=== PATIENT | female | born 1935 | race Caucasian/White ===

== ENCOUNTER 2020-01-11 23:38 | Emergency (ER) | payer MEDICARE, OTHER, SELFPAY ==
--- NOTE | 2020-01-11 23:43 | ED.FEMALEGU ---
HPI - Female Genitourinary General Chief complaint: Urogenital-Female Stated complaint: vaginal burning Time Seen by Provider: 01/11/20 23:41 Source: patient and family Mode of arrival: ambulatory Limitations: no limitations History of Present Illness HPI Narrative: Patient is an 84-year-old female who presents for evaluation of vaginal itching and irritation. Patient reports she has had burning in that area as well as some white discharge. She denies fever, chills, nausea or vomiting. No painful urination or hematuria. No constipation or diarrhea. Patient reports mild pelvic pain. No recent history of UTI or yeast infection. No weakness or numbness. No recent sexual activity. No new soaps, lotions or detergents. Related Data Allergies Allergy/AdvReac Type Severity Reaction Status Date / Time Penicillins Allergy Unknown Verified 04/12/18 14:58 Review of Systems Review of Systems: Narrative: CONSTITUTIONAL: Denies fever CARDIOVASCULAR: Denies chest pain RESPIRATORY: Denies cough or dyspnea. GASTROINTESTINAL: Denies abdominal pain SKIN: Denies rash MUSCULOSKELETAL: Denies back pain NEUROLOGIC: Denies headache [facility] Past Medical History Medical History (Updated 01/12/20 @ 00:52 by Sonia Mckeon MD) Acid reflux Hyperlipidemia Hypertension Small bowel obstruction Surgical History Surgical History (Updated 01/11/20 @ 23:43 by Sonia Mckeon MD) H/O mastectomy Social History Social History Smoking status: Never smoker Alcohol intake: never Exam Narrative: Exam Narrative: GENERAL: Awake, alert, conversant HEAD: Normocephalic, atraumatic. EYES: PERRLA and EOMI. ENT: Nares clear, no rhinorrhea or epistaxis. Mucous membranes moist. NECK: Supple. CHEST: No respiratory distress, breathing even and non labored HEART: Regular rate, sinus rhythm ABDOMEN:Non distended, non tender : Labia majora and minora are mildly excoriated, white cottage cheeselike discharge present. No abscess. No vaginal bleeding. EXTREMITIES: Normal range of motion. No edema. SKIN: Warm, dry, no rash. NEURO:No focal deficits. Alert and oriented x3 Course Vital Signs Vital signs: Vital Signs Pulse Rate 99 01/11/20 23:44 Respiratory Rate 18 06/18/20 23:44 Blood Pressure 171/68 H 01/11/20 23:44 Pulse Oximetry 94 01/11/20 23:44 Pulse Rate 83 01/12/20 00:47 Respiratory Rate 18 01/12/20 00:47 Blood Pressure 173/81 H 01/12/20 00:47 Pulse Oximetry 98 01/12/20 00:47 MDM - Female Genitourinary MDM Narrative Medical decision making narrative: Patient presenting for evaluation of vaginal irritation. Patient has had white discharge on exam it seems most consistent with vaginal candidiasis. Patient was given Diflucan in the ER. No UTI. No other severe electrolyte derangements. Mild anemia. Patient will also be given intravaginal suppository for irritation, advised to follow-up with her PCP or return should symptoms change or recur. Differential Diagnosis Differential diagnosis: Likely urinary tract infection, cervicitis and vaginitis Lab Data Attestation: I reviewed the patient's lab results. Result diagrams: 01/12/20 00:14 01/12/20 00:14 Labs: Lab Results 01/12/20 01/12/20 01/12/20 Range/Units 00:14 00:14 00:16 WBC 11.5 H (4.5-10.0) K/mm3 RBC 3.61 L (4.2-5.4) M/mm3 Hgb 9.4 L (12.0-15.0) g/dL Hct 30.4 L (37.0-47.0) % MCV 84.2 (80-100) fl MCH 26.0 (26-34) pg MCHC 30.9 L (32-36) g/dl RDW 15.0 H (11.5-14.5) % Plt Count 350 (150-375) k/mm3 MPV 10.7 H (7.4-10.4) fl Immature Gran % (Auto) 0.5 (0-0.5) % Neut % (Auto) 62.8 (45.5-73.1) % Lymph % (Auto) 22.5 (18.3-44.2) % [place] % (Auto) 9.7 H (2.6-8.5) % Eos % (Auto) 3.6 (0-4.4) % Baso % (Auto) 0.9 (0.2-1.2) % Lymph # (Auto) 2.59 (0.9-3.2) K/mm3 [place] # (Auto) 1.1 H (0.1-0.6)
[2020-01-11 23:44] VITALS: BP 171/68; PULSE 99; RESP 18; O2SAT 94
[2020-01-12 00:26] LABS: Basophils Absolute Auto 0.1 K/mm3 (0.0-0.1); Basophils Percent Auto 0.9 % (0.2-1.2); Eosinophils Absolute Auto 0.4 K/mm3 (0-0.3); Eosinophils Percent Auto 3.6 % (0-4.4); Hematocrit 30.4 % (37.0-47.0); Hemoglobin 9.4 g/dL (12.0-15.0); Immature Granulocyte Absolute 0.06 K/mm3 (0.00-0.031); Immature Granulocyte Percent A 0.5 % (0-0.5); Lymphocytes Absolute Auto 2.59 K/mm3 (0.9-3.2); Lymphocytes Percent Auto 22.5 % (18.3-44.2); Mean Corpuscular HGB Conc 30.9 g/dl (32-36); Mean Corpuscular Volume 84.2 fl (80-100); Mean Platelet Volume 10.7 fl (7.4-10.4); Monocytes Absolute Auto 1.1 K/mm3 (0.1-0.6); Monocytes Percent Auto 9.7 % (2.6-8.5); Neutrophils Absolute Auto 7.2 K/mm3 (1.3-6.7); Neutrophils Percent Auto 62.8 % (45.5-73.1); Platelet Count Result 350 k/mm3 (150-375); Red Blood Count 3.61 M/mm3 (4.2-5.4); White Blood Count 11.5 K/mm3 (4.5-10.0)
[2020-01-12] MEDS: FLUCONAZOLE 150 MG TABLET PO (00:26)
[2020-01-12 00:37] LABS: Blood Urea Nitrogen 16 mg/dL (7-17); Calcium 9.6 mg/dL (8.4-10.2); Carbon Dioxide 22 mmol/L (22-30); Chloride 103 mmol/L (98-107); Estimated CRCL calculation 37 ml/min; Estimated Glomerular Filt Rate > 60; Glucose 108 mg/dL (65-105); Potassium 4.3 mmol/L (3.4-5.0); Sodium 134 mmol/L (137-145)
[2020-01-12 00:46] LABS: Add Urine Microscopic? YES; Appearance Urine Turbid (Clear); Bacteria Urine 1+ /hpf; Bilirubin Urine Negative (Negative); Blood Urine Negative (Negative); Color Urine Yellow (Yellow); Glucose Urine UA Negative (Negative); Ketones Urine Negative (Negative); Leukocyte Esterase Ur Negative LEU/UL (Negative); Mucus Urine Rare /lpf; Nitrate Urine Negative (Negative); Protein Urine Negative (Negative); Specific Grav Ur 1.009 (1.001-1.035); Squamous Epithelial Cell Urine Many /hpf (Few); Urobilinogen Urine Negative mg/dL (<2.0)
[2020-01-12 00:47] VITALS: BP 173/81; PULSE 83; RESP 18; O2SAT 98
[2020-01-12 01:31] VITALS: BP 163/72; PULSE 87; RESP 18; O2SAT 99
== END 2020-01-12 01:12 | disposition home or self-care (01) ==
PROVIDERS: Emergency Provider Emergency Medicine; PCP Family Medicine
DX: B37.3 Candidiasis of vulva and vagina (principal); E78.5 Hyperlipidemia, unspecified; I10 Essential (primary) hypertension; Z90.10 Acquired absence of unspecified breast and nipple
CPT/HCPCS: 36415; 80048; 81001; 85025; 99283; A9270

== ENCOUNTER 2020-01-14 10:14 | Emergency (ER) | payer MEDICARE, OTHER, SELFPAY ==
[2020-01-14 10:24] VITALS: BP 172/69; PULSE 92; RESP 18; TEMP 36.6; O2SAT 100
[2020-01-14 11:07] LABS: Basophils Absolute Auto 0.1 K/mm3 (0.0-0.1); Basophils Percent Auto 0.8 % (0.2-1.2); Eosinophils Absolute Auto 0.4 K/mm3 (0-0.3); Eosinophils Percent Auto 3.1 % (0-4.4); Hematocrit 30.2 % (37.0-47.0); Hemoglobin 9.3 g/dL (12.0-15.0); Immature Granulocyte Absolute 0.04 K/mm3 (0.00-0.031); Immature Granulocyte Percent A 0.3 % (0-0.5); Lymphocytes Absolute Auto 1.67 K/mm3 (0.9-3.2); Lymphocytes Percent Auto 14.6 % (18.3-44.2); Mean Corpuscular HGB Conc 30.8 g/dl (32-36); Mean Corpuscular Hemoglobin 25.9 pg (26-34); Mean Corpuscular Volume 84.1 fl (80-100); Mean Platelet Volume 10.6 fl (7.4-10.4); Neutrophils Absolute Auto 8.3 K/mm3 (1.3-6.7); Neutrophils Percent Auto 72.2 % (45.5-73.1); Platelet Count Result 342 k/mm3 (150-375); Red Blood Count 3.59 M/mm3 (4.2-5.4); Red Cell Distribution Width 15.4 % (11.5-14.5); White Blood Count 11.4 K/mm3 (4.5-10.0)
[2020-01-14 11:19] LABS: Blood Urea Nitrogen 23 mg/dL (7-17); Calcium 9.9 mg/dL (8.4-10.2); Carbon Dioxide 25 mmol/L (22-30); Chloride 102 mmol/L (98-107); Estimated CRCL calculation 36 ml/min; Estimated Glomerular Filt Rate 60; Glucose 120 mg/dL (65-105); Potassium 4.5 mmol/L (3.4-5.0); Sodium 134 mmol/L (137-145)
--- NOTE | 2020-01-14 11:19 | ED.FEMALEGU ---
HPI - Female Genitourinary General Chief complaint: STUDENT CAREER DEVELOPMENT SPECIALIST Stated complaint: vaginal pain Time Seen by Provider: 01/14/20 10:26 Source: patient Mode of arrival: ambulatory Limitations: no limitations History of Present Illness HPI Narrative: This is a 84 year old female that presents to the ER for vaginal irritation x 3 days. Reports she was seen here for this initially and given a pill to treat yeast infection. Reports initially she had relief of her symptoms. She was also prescribed a vaginal suppository for yeast infection. Reports a couple of days later her symptoms returned. Reports the suppository was causing more irritation. Also reports dysuria. Denies fever, abdominal pain, nausea, vomiting, or hematuria. Related Data Allergies Allergy/AdvReac Type Severity Reaction Status Date / Time Penicillins Allergy Unknown Unknown Verified 01/14/20 10:27 Review of Systems Review of Systems: Narrative: CONSTITUTIONAL: Denies fever GASTROINTESTINAL: Denies abdominal pain, nausea, vomiting GENITOURINARY: Reports dysuria. Denies hematuria. All systems reviewed & are unremarkable except as noted in HPI and below PMFSH Past Medical History Medical History (Updated 01/14/20 @ 12:32 by Pina Mccollum PA-C) Acid reflux Hyperlipidemia Hypertension Small bowel obstruction Surgical History Surgical History (Updated 01/11/20 @ 23:43 by Sonia Mckeon MD) H/O mastectomy Social History Social History Smoking status: Never smoker Alcohol intake: never Gender identity (if verbalized by the patient): Female Exam Narrative: Exam Narrative: GENERAL: Well-appearing, well-nourished, and in no acute distress. HEAD: Normocephalic, atraumatic. EYES: EOMI. CHEST: Clear to auscultation. No respiratory distress. No wheezes rales or rhonchi HEART: Regular rate and rhythm. No murmur heard. Normal peripheral pulses. ABDOMEN: Soft, nontender, nondistended, normal active bowel sounds. No CVA tenderness EXTREMITIES: Normal range of motion. No edema. SKIN: Warm, dry, no rash. NEURO: No focal deficits. Alert and oriented x3. PSYCH: Normal mood and affect PELVIC: Normal external genitalia. Normal exam of the vaginal vault. Small amount of white discharge present Course Vital Signs Vital signs: Vital Signs Temperature 97.9 F 01/14/20 10:24 Pulse Rate 92 01/14/20 10:24 Respiratory Rate 18 01/14/20 10:24 Blood Pressure 172/69 H 01/14/20 10:24 Pulse Oximetry 100 01/14/20 10:24 Temperature 97.9 F 01/14/20 10:24 Pulse Rate 86 01/14/20 12:30 Respiratory Rate 18 01/14/20 12:30 Blood Pressure 167/66 H 01/14/20 12:30 Pulse Oximetry 99 01/14/20 12:30 MDM - Female Genitourinary MDM Narrative Medical decision making narrative: Patient presents the emergency department for vaginal irritation x4 days. Was originally seen here for this and given a dose of Diflucan p.o. Was sent home on intravaginal suppository as well. Reports the suppositories were giving her more irritation and her symptoms returned. CBC with mild leukocytosis to 11.4. Her hemoglobin appears to be around her baseline. Metabolic panel without concerning changes. UA is normal. Trichomonas was negative. A genital culture, chlamydia and gonorrhea were sent. Patient will be given another dose of oral fluconazole today and 2 additional doses for home. Patient was instructed if this does not relieve her symptoms to follow-up with a math instructor. Patient stable and felt appropriate for further outpatient evaluation. She was given warnings to return to the ER Lab Data Attestation: I reviewed the patient's lab results. Result diagrams: 01/14/20 11:02 01/14/20 11:02 Labs: Lab Results 01/14/20 01/14/20 01/14/20 Range/Units 11:02 11:02 11:18 WBC 11.4 H (4.5-10.0) K/mm3 RBC 3.59 L (4.2-5.4) M/mm3 Hgb 9.3 L (12.0-15.0) g/dL Hct 30.
[2020-01-14 11:37] LABS: Add Urine Microscopic? YES; Appearance Urine Clear (Clear); Bilirubin Urine Negative (Negative); Blood Urine Negative (Negative); Color Urine Yellow (Yellow); Glucose Urine UA Negative (Negative); Ketones Urine Negative (Negative); Leukocyte Esterase Ur Negative LEU/UL (Negative); Mucus Urine Rare /lpf; Nitrate Urine Negative (Negative); Protein Urine Negative (Negative); RBC Urine 0-2 /hpf (0-2); Specific Grav Ur 1.018 (1.001-1.035); Squamous Epithelial Cell Urine Rare /hpf (Few); Urobilinogen Urine Negative mg/dL (<2.0); WBC Urine 0-3 /hpf
[2020-01-14 12:30] VITALS: BP 167/66; PULSE 86; RESP 18; O2SAT 99
[2020-01-14] MEDS: FLUCONAZOLE 150 MG TABLET PO (12:30)
== END 2020-01-14 13:00 | disposition home or self-care (01) ==
PROVIDERS: Physician Assistant; Emergency Provider Emergency Medicine; PCP Family Medicine
DX: B37.3 Candidiasis of vulva and vagina (principal); E78.5 Hyperlipidemia, unspecified; I10 Essential (primary) hypertension; Z90.10 Acquired absence of unspecified breast and nipple
CPT/HCPCS: 36415; 80048; 81001; 85025; 87070; 87491; 87591; 87808; 99284; A9270

== ENCOUNTER 2021-03-30 21:14 | Inpatient (IN) | payer MEDICARE, OTHER, SELFPAY ==
--- NOTE | ~2021-03-30 | XR_ITS ---
EXAMINATION: XR chest PICC line DATE: 03/31/2021 19:29 INDICATION: Central line placement. TECHNIQUE: A single frontal view of the chest was obtained. COMPARISON: Chest single view at 642 PM FINDINGS: There is a moderate-sized left pleural effusion. There is a diffuse interstitial pattern in the lungs, consistent with mild pulmonary edema. There are airspace opacities at left lung base. No pneumothorax. Cardiomegaly is noted. A left upper extremity peripherally inserted central venous cath eter (PICC) is seen with tip in the superior vena cava. IMPRESSION: 1. PICC tip in the superior vena cava. 2. Mild pulmonary edema. 3. Stable moderate-sized left pleural effusion. 4. Stable airspace opacities at left lung base, consistent with atelectasis versus pneumonia. 5. Cardiomegaly. Reviewed, dictated and finalized at location A. IMPRESSION: 1. PICC tip in the superior vena cava. 2. Mild pulmonary edema. 3. Stable moderate-sized left pleural effusion. 4. Stable airspace opacities at left lung base, consistent with atelectasis igor myrtle pneumonia. 5. Cardiomegaly.
--- NOTE | ~2021-03-30 | XR_ITS ---
EXAMINATION: XR chest 1V portable DATE: 03/31/2021 12:37 INDICATION: Shortness of breath. TECHNIQUE: A single frontal view of the chest was obtained. COMPARISON: Chest 2 views 03/30/2021, CT abdomen and pelvis 03/31/2021 FINDINGS: There are small right and moderate-sized left pleural effusions. There are airspace opaciti es in the mid and lower lung zones with a basilar predominance. No pneumothorax. Cardiomegaly is note d. There are surgical clips in right axilla. IMPRESSION: 1. Stable small right and moderate-sized left pleural effusions. 2. Airspace opacities in the mid and lower lung zones with worsening on the right, likely a combinati on of pulmonary edema and atelectasis. Pneumonia cannot be excluded. 3. Cardiomegaly. Reviewed, dictated and finalized at location A. IMPRESSION: 1. Stable small right and moderate-sized left pleural effusions. 2. Airspace opacities in the mid and lower lung zones with worsening on the rig ht, likely a combination of pulmonary edema and atelectasis. Pneumonia cannot b e excluded. 3. Cardiomegaly.
--- NOTE | ~2021-03-30 | CT_ITS ---
EXAMINATION: CT brain wo con DATE: 03/30/2021 23:02 INDICATION: Altered mental status with confusion TECHNIQUE: Computed tomography (CT) of the head was performed without intravenous contrast. Sagittal and coronal reconstructions were performed. The mA was adjusted according to patient size. Iterative reconstruction technique was employed. The dose-length product was 605.33 mGy-cm. COMPARISON: head CT dated 01/24/2019 FINDINGS: No acute intracranial hemorrhage, acute infarction or abnormal extra axial fluid collection. 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 There is mild scattered white matter hypoatte nuation consistent with chronic small vessel ischemic disease. Symmetric prominence of the sulci and ventricles consistent with moderate age-appropriate diffuse cerebral volume loss. No mass/mass effect . Changes of bilateral intraocular lens replacement. The orbits and mastoid air cells are normal. Mil d mucosal thickening in the bilateral sphenoid sinuses. Intracranial calcified cerebral atheroscleros is is noted. IMPRESSION: 1. No acute intracranial process. 2. 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 3. Age-related changes including moderate diffuse volume loss and mild scattered white matter hypoatt enuation consistent with chronic small vessel ischemic disease. Reviewed, dictated and finalized at location A. IMPRESSION: 1. No acute intracranial process. 2. 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 3. Age-related changes including moderate diffuse volume loss and mild scattere d white matter hypoattenuation consistent with chronic small vessel ischemic di sease.
--- NOTE | ~2021-03-30 | XR_ITS ---
EXAMINATION: XR chest 2V DATE: 03/30/2021 21:38 INDICATION: Cough and shortness of breath. Possible diabetic ketoacidosis. TECHNIQUE: frontal and lateral views of the chest were obtained. COMPARISON: Chest radiograph dated 01/24/2019 FINDINGS: Cardiomegaly. Opacities in the bilateral lower lung zones consistent with small posteriorly layering bilateral pleural effusions with associated bibasilar atelectasis, mild pulmonary edema or pneumonia. No pneumothorax. Status post right mastectomy and surgical clips the right axilla consistent with as sociated lymph node dissection. Mild thoracic kyphosis with moderate to severe spondylosis. IMPRESSION: 1. Bibasilar opacities which could represent atelectasis, mild pulmonary edema or pneumonia. 2. Small bilateral pleural effusions. 3. Cardiomegaly. Reviewed, dictated and finalized at location A.
--- NOTE | ~2021-03-30 | XR_ITS ---
EXAMINATION: XR chest PICC line DATE: 03/31/2021 19:29 INDICATION: Central line placement. TECHNIQUE: A single frontal view of the chest was obtained. COMPARISON: Chest single view at 12:03 PM FINDINGS: There is a moderate-sized left pleural effusion. There is a diffuse interstitial pattern in the lungs, consistent with mild pulmonary edema. There are airspace opacities at left lung base. No pneumothorax. Cardiomegaly is noted. A left upper extremity peripherally inserted central venous cath eter (PICC) is seen with tip in the left neck. There are surgical clips in right axilla. IMPRESSION: 1. PICC tip in left neck. 2. Mild pulmonary edema. 3. Stable moderate-sized left pleural effusion. 4. Stable airspace opacities at left lung base, consistent with atelectasis versus pneumonia. 5. Cardiomegaly. Reviewed, dictated and finalized at location A. IMPRESSION: 1. PICC tip in left neck. 2. Mild pulmonary edema. 3. Stable moderate-sized left pleural effusion. 4. Stable airspace opacities at left lung base, consistent with atelectasis igor myrtle pneumonia. 5. Cardiomegaly.
--- NOTE | ~2021-03-30 | US_ITS ---
EXAMINATION: US venous doppler [facility] DATE: 04/01/2021 13:53 INDICATION: Lower limb swelling. TECHNIQUE: Grayscale ultrasound images without and with compression and Doppler ultrasound images of the bilateral lower extremity veins were obtained. COMPARISON: None. FINDINGS: The visualized portions of right common femoral vein, profunda (deep) femoral vein, femoral vein, pop liteal vein, peroneal veins, and greater saphenous vein outflow are patent. There is thrombus in a ri ght posterior tibial vein. The visualized portions of left common femoral vein, profunda femoral vein, femoral vein, popliteal v ein, peroneal veins, and posterior tibial veins are patent. There is thrombus in left greater sapheno us vein. IMPRESSION: 1. Deep vein thrombosis involving a right posterior tibial vein. I called this result to Dr. Cynthia cardenas. 2. Superficial vein thrombosis involving left greater saphenous vein. Reviewed, dictated and finalized at location A. IMPRESSION: 1. Deep vein thrombosis involving a right posterior tibial vein. I called this result to Dr. Smith. 2. Superficial vein thrombosis involving left greater saphenous vein.
--- NOTE | ~2021-03-30 | CT_ITS ---
EXAMINATION: CT abdomen pelvis w con DATE: 03/31/2021 14:11 INDICATION: Diarrhea. Abdominal distention. Ischemic bowel. TECHNIQUE: Computed tomography (CT) of the abdomen and pelvis was performed with 100 mL Omnipaque-350 intravenous contrast. Automated exposure control and iterative reconstruction technique were employe d. The dose-length product was 1059.86 mGy-cm. COMPARISON: 03/24/2018 FINDINGS: Small right and small to moderate left posterior layering pleural effusions with dependent passive at electasis in the bilateral lower lobes. There are some patchy groundglass opacities in the noncollaps ed portion of the left lower lobe which could represent pulmonary edema, aspiration or pneumonia. Car diomegaly. Atherosclerotic coronary artery calcification. Small pericardial effusion. Small sliding-t ype hiatal hernia. Diffuse hepatic steatosis. Gallbladder is dilated to 4.3 similar maximal diameter without evident wal l thickening or focal pericholecystic inflammatory stranding to suggest acute cholecystitis. Spleen a nd pancreas are normal. Unchanged mild thickening of the bilateral adrenal glands without discrete no dules. Bilateral renal cysts, the largest on the left measuring 2.7 cm on the right measuring 2.2 cm. Richardson catheter within the partially decompressed bladder. The uterus is not identified and has likel y been surgically resected. Normal appendix. Small bowel anastomosis in the right lower quadrant. No bowel obstruction. No eviden t wall thickening of the small bowel with relatively uniform mucosal enhancement. There are a few div erticula along the proximal sigmoid colon without adjacent inflammatory change to suggest diverticuli tis. There are some wall thickening along the mid to distal colon consistent with colitis. No pneumat osis or free intraperitoneal gas. Large amount of ascites scattered throughout the abdomen and pelvis . There is calcified atherosclerosis of the aorta and many of the other arteries. No hemodynamically si gnificant stenosis specifically of the celiac axis, superior mesenteric or inferior mesenteric arteri es. No pathologically enlarged abdominal or pelvic lymphadenopathy. There is prominent diffuse body wall edema. Severe spondylosis at T7-T8 and L1-L2. Otherwise mild to moderate thoracolumbar spondylos is. Mild to moderate osteoarthritis at the bilateral hip and sacroiliac joints. IMPRESSION: 1. Diffuse wall thickening of the mid to distal colon consistent with colitis which most likely infec tious or inflammatory in etiology. 2. Anasarca with prominent diffuse body wall edema, small right and [id number] left pleural ef fusions, small pericardial effusion and large amount of ascites. 3. Patchy groundglass opacities in the noncollapsed portion of the left lower lobe which could be due to pulmonary edema, pneumonia, aspiration or atelectasis. 4. Cardiomegaly. 5. Diffuse hepatic steatosis. 6. Small sliding-type hiatal hernia. Reviewed, dictated and finalized at location A. IMPRESSION: 1. Diffuse wall thickening of the mid to distal colon consistent with colitis w hich most likely infectious or inflammatory in etiology. 2. Anasarca with prominent diffuse body wall edema, small right and small-to-mo derate left pleural effusions, small pericardial effusion and large amount of a scites. 3. Patchy groundglass opacities in the noncollapsed portion of the left lower l obe which could be due to pulmonary edema, pneumonia, aspiration or atelectasis . 4. Cardiomegaly. 5. Diffuse hepatic steatosis. 6. Small sliding-type hiatal hernia.
--- NOTE | ~2021-03-30 | CT_ITS ---
EXAMINATION: CTA chest PE protocol DATE: 04/01/2021 14:25 INDICATION: Tachypnea. TECHNIQUE: Computed tomography angiography (CTA) of the chest was performed with 100 mL Omnipaque-350 intravenous contrast timed to evaluate the pulmonary arteries. Coronal maximum intensity projection 3D-reconstructions were created by the technologist. Automated exposure control and iterative reconst ruction technique were employed. The dose-length product was 649.62 mGy-cm. COMPARISON: CT abdomen and pelvis 03/31/2021 FINDINGS: There are small right and moderate-sized left pleural effusions. There is dependent atelect asis bilaterally. There is smooth septal thickening bilaterally, consistent with a combination of pul monary edema and chronic interstitial lung disease. There is a small area of honeycombing in peripher al right lower lobe. Cardiomegaly is noted. There is a small pericardial effusion. There are coronary artery calcifications. There are acute pulmonary emboli in segmental arteries of all lobes. There is mild mediastinal lymphadenopathy, likely reactive. Body wall edema is noted. There is a large volume of ascites. There is severe thoracic and lumbar spondylosis. A left upper extremity peripherally ins erted central venous catheter (PICC) is seen with tip in the superior vena cava. IMPRESSION: 1. Acute pulmonary emboli involving segmental arteries in all lobes. 2. Small right and moderate-sized left pleural effusions. 3. Mild pulmonary edema. 4. Mild chronic interstitial lung disease. 5. Large volume of ascites. 6. Cardiomegaly. 7. Small pericardial effusion. Reviewed, dictated and finalized at location A.
--- NOTE | ~2021-03-30 | XR_ITS ---
XR chest 1V portable 04/03/2021 15:43 Indication: Shortness of breath Procedure: AP portable chest Comparison: Comparison to multiple prior studies sequentially, with oldest reviewed study dated 11/2020. Findings: Cardiomegaly with interstitial edema. Small right pleural effusion. No pneumothorax. No acu te osseous abnormality. Impression: 1: Cardiomegaly with interstitial edema. 2: Small right pleural effusion. Reviewed, dictated and finalized at location A. Impression: 1: Cardiomegaly with interstitial edema. 2: Small right pleural effusion.
--- NOTE | ~2021-03-30 | XR_ITS ---
EXAMINATION: XR Abdomen PICC EXAM DATE: 04/03/2021 12:37 INDICATION: Mid thigh picc line placement. DVT, pulmonary emboli TECHNIQUE: Frontal projection(s) of the abdomen for interpretation. Comparison is made to prior exami nation from 03/24/2018. FINDINGS: . There is a left-sided thigh venous PICC line with tip overlying the IVC at the T12 level, adequate. Several loops of mildly dilated small bowel, ileus. Expected amount of colonic stool. Ther e is no organomegaly. Degenerative IMPRESSION: PICC line at expected position. Reviewed, dictated and finalized at location A.
[2021-03-30 21:07] VITALS: PULSE 102; RESP 35; TEMP 36.6; O2SAT 100
--- NOTE | 2021-03-30 21:13 | ECG_ITS ---
Measurements Intervals [place] Rate: 103 P: 2 GA: 106 QRS: -7 QRSD: 110 T: 0 QT: 382 QTc: 500 Interpretive Statements SINUS TACHYCARDIA WITH SHORT GA INTERVAL VENTRICULAR PREMATURE COMPLEX POSSIBLE LEFT ATRIAL ENLARGEMENT INCOMPLETE RIGHT BUNDLE BRANCH BLOCK LOW QRS VOLTAGE IN PRECORDIAL LEADS BORDERLINE T WAVE ABNORMALITY- DIFFUSE LEADS BASELINE ARTIFACT- V3 BORDERLINE ECG Electronically Signed On 03-31-2021 7:19:49 CDT by Dm Lawton D.O.
--- NOTE | 2021-03-30 21:30 | ED.SOB ---
HPI - SOB/Dyspnea General Chief Complaint: Shortness of Breath/Dyspnea Stated Complaint: dyspnea/cough Time Seen by Provider: 03/30/21 21:21 Source: RN notes reviewed History of Present Illness HPI Narrative: Patient presents emergency department from home via EMS for shortness of breath history is per the patient as well as [id number] this present per [id number] the patient stopped taking her medications approximately 2 months ago and went to take food over to her today and the patient was diffusely swollen was having shortness of breath he also states the patient seemed more confused than normal patient is currently resting in bed she has no complaints she denies any chest pain shortness of abdominal pain nausea vomiting she states she is not sure why she stopped taking her medications but does not like taking them she denies any fevers or chills Related Data Allergies Allergy/AdvReac Type Severity Reaction Status Date / Time Penicillins Allergy Unknown Unknown Verified 01/14/20 10:27 Review of Systems Review of Systems: Gen.: Denies fevers or chills ENT: Denies congestion Respiratory: Reports shortness of breath CV: Denies chest pain or palpitations GI: Denies abdominal pain nausea, emesis or diarrhea Musculoskeletal: Denies back pain or muscle pain Neuro: Denies numbness, tingling, weakness or focal weakness Skin: Denies rash Except as documented, all other systems reviewed and negative [facility] Past Medical History Medical History Acid reflux Hyperlipidemia Hypertension Small bowel obstruction Surgical History Surgical History (Updated 01/11/20 @ 23:43 by Sonia Mckeon MD) H/O mastectomy Social History Social History Smoking status: Never smoker Alcohol intake: never Gender identity (if verbalized by the patient): Female Exam Narrative: APPEARANCE: No acute distress, nontoxic, resting in bed EYES: EOMI HEENT: Normocephalic, atraumatic, OMM RESPIRATORY: No respiratory distress crackles in the bilateral lower lung bergeron CARDIOVASCULAR: Regular rate and rhythm without murmurs rubs or gallops. ABDOMINAL: Soft, nontender, nondistended, no rebound or guarding MUSCULOSKELETAl: Moves all extremities. No clubbing, cyanosis 4+ edema in bilateral lower extremities NEURO: Awake and alert x 2. Following commands, speech normal, no focal deficits SKIN:: Warm, dry. 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 Holbrook before in the past but does not recall why she saw Dr. Holbrook Called discussed Dr. De Anda presentation work-up agrees with consult at this time agrees with plan for aspirin and Lasix Discussed with Dr. Butler presentation work-up agrees with admission at this time Discussed with patient and family results of workup and diagnosis. Discussed need for admission. Patient and family understand and agree to current treatment plan Vital Signs Vital signs: Vital Signs Temperature 97.9 F 03/30/21 21:07 Pulse Rate 102 H 03/30/21 21:07 Respiratory Rate 35 H 03/30/21 21:07 Pulse Oximetry 100 03/30/21 21:07 Temperature 97.9 F 03/30/21 21:07 Pulse Rate 102 H 03/30/21 22:13 Respiratory Rate 24 H 03/30/21 22:13 Blood Pressure 149/86 H 03/30/21 22:13 Pulse Oximetry 97 03/30/21 22:13 MDM - SOB/Dyspnea Lab Data Result diagrams: 03/30/21 21:22 03/30/21 21:22 Labs: Lab Results 03/30/21 03/30/21 03/30/21 Range/Units 21:22 21:22 21:22 WBC 10.9 H (4.5-10.0) K/mm3 RBC 3.87 L (4.2-5.4) M/mm3 Hgb 9.1 L (12.0-15.0) g/dL Hct 32.5 L (37.0-47.0) % MCV 84.0 (80-100) fl MCH 23.5 L (26-34) pg MCHC 28.0 L (32-36) g/dl RDW 19.3 H (
[2021-03-30 21:41] LABS: Lactic Acid Reflex 2.2 mmol/L (0.7-2.1)
[2021-03-30 21:48] LABS: Basophils Percent Auto 0.3 % (0.2-1.2); Eosinophils Percent Auto 0.2 % (0-4.4); Hematocrit 32.5 % (37.0-47.0); Hemoglobin 9.1 g/dL (12.0-15.0); Immature Granulocyte Absolute 0.05 K/mm3 (0.00-0.031); Immature Granulocyte Percent A 0.5 % (0-0.5); Lymphocytes Absolute Auto 1.25 K/mm3 (0.9-3.2); Lymphocytes Percent Auto 11.5 % (18.3-44.2); Mean Corpuscular Hemoglobin 23.5 pg (26-34); Monocytes Absolute Auto 0.9 K/mm3 (0.1-0.6); Monocytes Percent Auto 8.5 % (2.6-8.5); Neutrophils Absolute Auto 8.6 K/mm3 (1.3-6.7); Nucleated Red Blood Cells Perc 0.3 % (0.0-0.2); Platelet Count Result 308 k/mm3 (150-375); Red Blood Count 3.87 M/mm3 (4.2-5.4); Red Cell Distribution Width 19.3 % (11.5-14.5); White Blood Count 10.9 K/mm3 (4.5-10.0)
[2021-03-30 21:58] LABS: INR 1.4
[2021-03-30 21:59] LABS: Partial Thromboplastin Time 34.3 SECONDS (22.3-36.8)
[2021-03-30 22:00] LABS: Anion Gap 11 mmol/L (8-16); Blood Urea Nitrogen 27 mg/dL (7-17); Calcium 9.7 mg/dL (8.4-10.2); Carbon Dioxide 22 mmol/L (22-30); Chloride 104 mmol/L (98-107); Estimated Glomerular Filt Rate 36; Glucose 322 mg/dL (65-110); Potassium 4.4 mmol/L (3.4-5.0); Sodium 137 mmol/L (137-145)
[2021-03-30 22:12] LABS: Anisocytosis 2+ (NORMAL); Hypochromasia 1+ (NORMAL); Platelet Estimate Adequate (Adequate)
[2021-03-30 22:13] VITALS: BP 149/86; PULSE 102; RESP 24; O2SAT 97
[2021-03-30 22:18] LABS: NT Pro B Type Natriuretic Pept > 35000 pg/mL (5-100); Troponin I 0.319 ng/mL (0.000-0.034)
[2021-03-30] MEDS: FUROSEMIDE INJ 40 MG/4 ML VIAL IV PUSH (22:45)
[2021-03-30] MEDS: ASPIRIN 81 MG CHEWABLE TABLET 324 MG PO (22:45)
[2021-03-30 23:13] LABS: Add Urine Microscopic? YES; Appearance Urine Cloudy (Clear); Bacteria Urine Trace /hpf; Bilirubin Urine Negative (Negative); Blood Urine Negative (Negative); Color Urine Yellow (Yellow); Glucose Urine UA Negative (Negative); Ketones Urine Negative (Negative); Leukocyte Esterase Ur 1+ LEU/UL (Negative); Mucus Urine Rare /lpf; Nitrate Urine Negative (Negative); Protein Urine 2+ mg/dL (Negative); Squamous Epithelial Cell Urine Many /hpf (Few); WBC Urine 31-50 /hpf
[2021-03-30 23:26] VITALS: BP 134/86; PULSE 101; RESP 32; O2SAT 96
[2021-03-31] VITALS (15 sets, daily range): BP systolic 90–142; BP diastolic 45–79; PULSE 55–103; RESP 18–26; TEMP 36.4–36.7; O2SAT 94–100; BMI 29.5
--- NOTE | 2021-03-31 | ECHO_ITS ---
Patient Info Name: Bryanna Veras Age: 85 years : 1935 Gender: Female Ht: 64 in Wt: 171 lbs BSA: 1.90 m2 HR: 77 bpm BP: 114 / 71 mmHg Heart Rhythm: Indeterminant Exam Date: 03/31/2021 1:10 PM Exam Location: [facility] Pulmonary Patient Status: Inpatient Admit Date: 03/31/2021 Staff Ordering Physician: Shukri Franco MD Surgical Pathologist: Carloz Mcneill RDCS, RT Attending Provider: Lela Kessler PA-C Referring Physician: Salvador SOMMER; Exam Type: CA echo doppler color flow Study Info Indications R06.02 - Shortness of breath Complete two-dimensional, color flow and Doppler transthoracic echocardiogram is performed. Summary 1. Complete two-dimensional, color flow and Doppler transthoracic echocardiogram is performed. 2. Normal left ventricular size with severe global hypokinesis. Normal thickness. Ejection fraction was calculated to be 40% but looks more in the 25-30% range visually. No segmental wall motion abnormalities. Grade 2 diastolic dysfunction is present. 3. Left atrial chamber dimension is moderately enlarged. 4. Right atrial chamber dimension is mildly enlarged. 5. There is moderate mitral valve regurgitation. 6. There is moderate tricuspid valve regurgitation. 7. Mild pulmonary hypertension, estimated pulmonary arterial systolic pressure is 47 mmHg. 8. There is trivial pericardial effusion. 9. Echogenic mass noted in the left ventricle, probably a calcified papillary muscle rupture rather than a thrombus. 10. Dilated inferior vena cava. 11. Rhythm indeterminate. Left Ventricle Left ventricular chamber dimension is normal. Left ventricular systolic function is severely reduced, estimated at 25-30%. There is no increased left ventricular wall thickness. Left ventricular septal wall motion is normal. The left ventricular diastolic function is grade II diastolic dysfunction. Right Ventricle Right ventricular chamber dimension is normal. Right ventricular systolic function is normal. Left Atria Left atrial chamber dimension is moderately enlarged. Right Atria Right atrial chamber dimension is mildly enlarged. Aortic Valve The aortic valve is trileaflet. There is moderate aortic valve sclerosis. There is no aortic valve stenosis. There is no aortic valve regurgitation. Pulmonic Valve The pulmonic valve is normal. There is no pulmonic valve stenosis. There is trace pulmonic regurgitation. Mitral Valve The mitral valve has thickened leaflets. There is no mitral valve stenosis. There is moderate mitral valve regurgitation. Tricuspid Valve The tricuspid valve leaflets are normal. There is no significant tricuspid valve stenosis. There is moderate tricuspid valve regurgitation. Mild pulmonary hypertension, estimated pulmonary arterial systolic pressure is 47 mmHg. Pericardium/Pleural The pericardium appears normal. There is trivial pericardial effusion. Inferior Vena Cava Not well visualized inferior vena cava with >50% collapse upon inspiration consistent with elevated right atrial pressure, 15 mmHg. Aorta The aortic root size at the sinus of Valsalva is normal. The prox ascending aorta size is normal. Left Ventricular Outflow Tract Name Value Normal LVOT 2D
[2021-03-31 00:28] LABS: Reflex Lactic Acid Yes or No Add Lactic
[2021-03-31 02:23] LABS: Lactic Acid 2.8 mmol/L (0.7-2.1)
[2021-03-31 02:37] LABS: Troponin I 0.321 ng/mL (0.000-0.034)
--- NOTE | 2021-03-31 03:15 | PC.NURSE ---
This patient, Bryanna Veras, was admitted to IMU Room 206-01. Patient oriented to hospital policies and general routines including ID bracelet, bed and alarms, visiting hours, pain management, procedures, bathroom and other care routines, personal items, smoking policy, room service/diet, and visiting hours. Patient/Family are encouraged to report perceived risks to care and to ask questions if they do not understand what they are told or what they should do.
--- NOTE | 2021-03-31 03:47 | PM.IMHP ---
H&P: HPI History of Present Illness Date/Time: 03/31/21 03:47 Chief Complaint: Shortness of breath Narrative: This is an 85-year-old female with past medical history significant for congestive heart failure, GERD, hypertension, hyperlipidemia. Patient was brought to the emergency room by his daughter in law who came to help her with doing chores around the house patient do some house cleaning and she noticed that she was having abnormal breathing also has been having profuse diarrhea for several weeks and she just learned that the patient had a stop taking her medications. [id number] also expresses concerns about patient's significant overall decline including cognitively. At the time of my visit patient states that she is in [facility] and when asked if she knows why she is here she states that everything is fine and she does not know why she is being brought to the hospital. Patient denied any discomfort. Most of the history has been obtained from medical records emergency room doctor and byakadik-oc-xto who is at bedside. Preliminary workup was significant for brain natriuretic peptide above 35,000, elevated troponin, chest x-ray significant for right lower lobe infiltrate, a urinalysis significant for numerous wbc's present. Review of Systems Review of Systems: ROS unobtainable: Yes unobtainable due to mental status (Likely underlying dementia) PMFSH Past Medical History Medical History (Updated 03/31/21 @ 04:25 by Shukri Franco MD) Acid reflux Hyperlipidemia Hypertension Small bowel obstruction Surgical History Surgical History (Updated 01/11/20 @ 23:43 by Sonia Mckeon MD) H/O mastectomy Social History Social History Smoking packs per day: 0.10 Smoking cigarettes per day: 2.0 Years smoked: 5 Smoking pack-years: 0.50 Smoking status: Former smoker Alcohol intake: never Substance use: never Gender identity (if verbalized by the patient): Female Spiritual care concerns: No Meds Home Medications and Allergies Home Medications Medication Instructions Recorded Confirmed Type carvedilol 6.25 mg PO BID 03/31/21 03/31/21 History fosinopril 20 mg PO DAILY 03/31/21 03/31/21 History hydralazine 25 mg PO TID 03/31/21 03/31/21 History insulin detemir U-100 [Levemir 20 unit SUBCUT HS 03/31/21 03/31/21 History FlexTouch U-100 Insuln] metformin 1,000 mg PO BIDWM 03/31/21 03/31/21 History simvastatin 20 mg PO DAILY 03/31/21 03/31/21 History Allergies Allergy/AdvReac Type Severity Reaction Status Date / Time Penicillins Allergy Unknown Unknown Verified 03/31/21 02:46 Vital Signs Vital Signs - 24 hr 03/30/21 21:07 03/30/21 22:13 03/30/21 23:26 Temperature 97.9 F Pulse Rate 102 H 102 H 101 H Respiratory Rate 35 H 24 H 32 H Blood Pressure 149/86 H 134/86 Pulse Oximetry 100 97 96 03/31/21 01:16 03/31/21 01:22 Temperature 97.6 F Pulse Rate 103 H 103 H Respiratory Rate 22 H Blood Pressure 142/68 H Pulse Oximetry 98 Exam Narrative: Patient is laying in [facility] Const: General: cooperative, comfortable, well developed, alert, awake, acute distress mild (Respiratory) and ill appearing acutely Nutritional Appearance: average body habitus Orientation/consciousness: oriented to person and oriented to place HENMT: Head: normal to inspection, normocephalic and atraumatic Ears: hearing grossly normal bilaterally General nose exam: Normal external nose present Face and sinus: normal facial exam Eyes: General: appearance normal, both eyes and all related structures Alignment and Position: alignment normal Sclera: sclerae normal Pupils: Equal, round and reactive pupils present EOM: EOMs intact bilaterally Neck: Neck: normal visual inspection, full ROM, no lymphadenopathy, supple and no JVD Thyroid: thyroid normal Lymphatic: no lymphadenopathy noted Resp: Effort & Inspection: normal respiratory effort,
[2021-03-31] MEDS: FUROSEMIDE INJ 40 MG/4 ML VIAL IV PUSH ×2 (04:43→08:50)
--- NOTE | 2021-03-31 05:06 | PC.NURSE ---
Called number listed for dtr Erna to obtain help with admission information, left message.
[2021-03-31 05:32] LABS: Basophils Percent Auto 0.5 % (0.2-1.2); Eosinophils Absolute Auto 0.1 K/mm3 (0-0.3); Eosinophils Percent Auto 0.6 % (0-4.4); Hematocrit 28.3 % (37.0-47.0); Immature Granulocyte Absolute 0.03 K/mm3 (0.00-0.031); Immature Granulocyte Percent A 0.4 % (0-0.5); Lymphocytes Absolute Auto 1.21 K/mm3 (0.9-3.2); Lymphocytes Percent Auto 14.2 % (18.3-44.2); Mean Corpuscular HGB Conc 28.3 g/dl (32-36); Mean Corpuscular Hemoglobin 23.5 pg (26-34); Mean Corpuscular Volume 83.2 fl (80-100); Monocytes Absolute Auto 0.9 K/mm3 (0.1-0.6); Monocytes Percent Auto 10.2 % (2.6-8.5); Neutrophils Absolute Auto 6.4 K/mm3 (1.3-6.7); Neutrophils Percent Auto 74.1 % (45.5-73.1); Nucleated Red Blood Cells Perc 0.4 % (0.0-0.2); Platelet Count Result 260 k/mm3 (150-375); White Blood Count 8.6 K/mm3 (4.5-10.0)
[2021-03-31 05:50] LABS: Alanine Aminotransferase 22 U/L (4-35); Albumin Level 3.1 g/dL (3.5-5.1); Alkaline Phosphatase 104 U/L (38-126); Anion Gap 11 mmol/L (8-16); Aspartate Amino Transferase 32 U/L (14-36); Blood Urea Nitrogen 28 mg/dL (7-17); Calcium 9.6 mg/dL (8.4-10.2); Carbon Dioxide 22 mmol/L (22-30); Chloride 106 mmol/L (98-107); Estimated CRCL calculation 29 ml/min; Estimated Glomerular Filt Rate 39; Glucose 269 mg/dL (65-110); Potassium 4.4 mmol/L (3.4-5.0); Sodium 139 mmol/L (137-145)
[2021-03-31 06:01] LABS: Troponin I 0.306 ng/mL (0.000-0.034)
[2021-03-31 06:41] LABS: Ovalocytes 1+ (NORMAL); Platelet Estimate Adequate (Adequate); Poikilocytosis 1+ (NORMAL); Schistocytes 1+ (NORMAL)
[2021-03-31] MEDS: hydrALAZINE HCL 25 MG TABLET PO (08:50)
[2021-03-31] MEDS: carvediloL 6.25 MG TABLET PO (08:50)
[2021-03-31] MEDS: INSULIN ASPART (*BKC) 100 UNITS/ML SUB-Q (08:51)
[2021-03-31] MEDS: SIMVASTATIN 20 MG TABLET PO (08:52)
[2021-03-31] MEDS: lisinopriL 20 MG TABLET PO (08:52)
--- NOTE | 2021-03-31 09:52 | PM.CNCAR ---
Assessment and Plan Assessment and plan (1) Acute on chronic diastolic CHF (congestive heart failure): Code(s): I50.33 - Acute on chronic diastolic (congestive) heart failure Status: Acute Assessment and Plan: Patient presents with new onset of CHF, presumably diastolic. Diuresing with IV furosemide. Echo pending. BLACK-inhibitor and beta-myranda resumed Daily BMP Discussed with KENN Galo (2) Elevated troponin: Code(s): R77.8 - Other specified abnormalities of plasma proteins Status: Acute Assessment and Plan: Elevated troponins but flat, no history of chest pain, no ischemic EKG changes. Doubt ACS. Elevated troponins are secondary to CHF. (3) Hypertension: Code(s): I10 - Essential (primary) hypertension Status: Acute Assessment and Plan: Off medications recently; resumed. (4) Elevated lactic acid level: Code(s): R79.89 - Other specified abnormal findings of blood chemistry Status: Acute Assessment and Plan: Mildly elevated lactic acid level. Blood cultures pending. Seems more tachypnec than I would expect. Repeat port CXR. Perhaps abdominal CT? Being treated for UTI with IV antibiotics. (5) Acute renal insufficiency: Code(s): N28.9 - Disorder of kidney and ureter, unspecified Status: Acute Assessment and Plan: Elevated creatinine noted on admission. Daily BMP. (6) T2DM (type 2 diabetes mellitus): Code(s): E11.9 - Type 2 diabetes mellitus without complications Status: Acute Assessment and Plan: Uncontrolled. (7) PVCs (premature ventricular contractions): Code(s): I49.3 - Ventricular premature depolarization Status: Acute Assessment and Plan: Chronic PVCs, noted on telemetry today. (8) Dementia: Code(s): F03.90 - Unspecified dementia without behavioral disturbance Status: Acute Additional Plan Addendum: CT results noted, with colitis, ascites, effusion etc.. Follow-up chest x-ray looks worse with more CHF, personally reviewed Diuresing well today with Lasix and so far hemodynamically stable. On antibiotics now. Continue current therapy. History of Present Illness History of Present Illness Consult date/time: 03/31/21 09:52 Requesting physician: Shukri Franco MD Consult reason: congestive heart failure Reason For Visit: CHF,Elevated Troponin,Acute Renal Insufficiency,UT Narrative: Date of service 03/31/2021 Bryanna harris is 85-year-old white female whom we were asked to see at the request of the hospitalist for advice and opinion regarding her new CHF in consultation. She is seen by Dr. rubio for hypertension, and she also has diabetes, hyperlipidemia and history of PVCs. History of dementia. The patient was brought to the emergency room by her vuwyheil-mu-iuj who noticed the patient was swollen and short of breath. She also has had profuse diarrhea for several weeks, has had a cognitive decline and stopped her medications. She was found to have new onset of CHF and admitted. Her antihypertensive medications have been resumed and she has been started on furosemide 40 mg IV push b.i.d.. The patient cannot give any relevant history and the history was obtained from EMR and office records. Echo 04/2019: EF 55%, diastolic dysfunction, mild MR, mild aortic root and valve calcification. Review of Systems Constitutional: Constitutional: Reports weakness Eyes: Eyes: Reports no additional eye complaints ENT: Denies epistaxis Cardiovascular: Cardiovascular: Denies chest pain, Reports pedal edema, Reports leg edema and Denies lightheadedness Respiratory: Respiratory: Reports cough, Reports dyspnea and Reports dyspnea on exertion Gastrointesti
--- NOTE | 2021-03-31 10:34 | PM.IMPN ---
Progress Note: A&P Assessment and Plan (1) Sepsis: Code(s): A41.9 - Sepsis, unspecified organism Status: Acute Assessment and Plan: Patient meets criteria for sepsis in the setting of tachycardia, tachypnea, leukocytosis, and elevated lactic acid level on arrival. Could be in the acute setting of urinary tract infection verses abdominal infection verses ischemic bowel Patient was started on IV Levaquin from the emergency room for possible urinary tract infection (#2), started on Flagyl (#1) for possible colitis due to diarrhea Repeat lactic acid is improving at 2.3 from 2.8 yesterday. ABG was completed due to tachypnea which showed respiratory alkalosis with a pH of 7.5, pCO2 29, PO2 69 on room air, within normal serum bicarb at 22. She is not acidotic at this time which would be concerning for acute bowel ischemia versus worsening infection. White blood cell count down to normal today, neutrophil count improved with IV antibiotics. Getting a stat CT abdomen pelvis with contrast to rule out bowel ischemia Patient otherwise mentally seems to have no encephalopathy at this time and at her baseline. Still pending urine culture and blood culture results Continue monitoring Vital signs, CBC daily, lactic until normal (2) CHF (congestive heart failure): Code(s): I50.9 - Heart failure, unspecified Status: Acute Assessment and Plan: Patient with no known history of congestive heart failure or on any diuretics, has been collecting fluid over the last few months that family have noticed. BNP is greater than 35,000, Chest x-ray shows cardiomegaly, mild pulmonary edema and bilateral bases and small bilateral pleural effusions 3+ pitting edema to lower extremities and abdominal wall= anasarca She was started on IV Lasix 40 mg b.i.d. Strict intake, output and weights daily Cardiology was consulted and their input is greatly appreciated Echocardiogram pending Continue monitoring fluid status, renal function, electrolytes with diuresis (3) Acute UTI: Code(s): N39.0 - Urinary tract infection, site not specified Status: Acute Assessment and Plan: Possible urinary tract infection, but has many squamous cell so could be contamination. She was started on IV Levaquin in the emergency room which is continued today. Seems her mental status has improved for her family members. Continue this treatment until urine culture and blood cultures return. 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 Patient has diffuse abdominal distension, frequent diarrhea, elevated lactic, tachypnea, so a CT abdomen pelvis with contrast has been ordered stat to rule out ischemic bowel Continue monitoring symptoms. (5) Elevated troponin: Code(s): R77.8 - Other specified abnormalities of plasma proteins Status: Acute Assessment and Plan: Troponins are elevated at 0.30, 0.32, 0.30. Be elevated from CHF exacerbation fluid overload since they are flat. Cardiology has been consult Neuro input is greatly appreciated. (6) Acute renal insufficiency: Code(s): N28.9 - Disorder of kidney and ureter, unspecified Status: Acute Assessment and Plan: Patient has no history of chronic renal insufficiency. She presented with a creatinine 1.4, it improved to 1.3 today with IV diuresis. Could be secondary to fluid overload. Continue monitoring renal function electrolytes with IV diuresis (7) T2DM (type 2 diabetes
[2021-03-31 10:53] LABS: Alveolar/Arterial O2 Gradient 44.8 mmHg; Base Excess ABG 0.1 mEq/l (+/-2.0); Carboxyhemoglobin 0.3 % THb (0-2.0); Fractional Inspired Oxygen 21 %; HCO3 ABG 22.8 mEq/l (22.0-26.0); Methemoglobin ABG 0.4 %THb (0-1.5); Oxygen Content ABG 11.3 %vol (16.0-22.0); Oxygen Saturation ABG 95.6 % (95.0-100.0); Oxyhemoglobin 91.9 % THb (90.0-100.0); PCO2 ABG 29.5 mmHg (35.0-45.0); PO2 ABG 69.6 mmHg (80.0-100.0); PO2 FiO2 Ratio Arterial Blood 3.31 %; Reduced Hemoglobin 7.4 %THb (0-5.0); Total Hemoglobin 8.7 g/dL (12.0-18.0)
[2021-03-31 10:56] LABS: pH ABG 7.506 (7.350-7.450)
[2021-03-31 10:57] LABS: Device ROOM AIR; Modified Allen's Test Pass; Site Drawn LEFT RADIAL
--- NOTE | 2021-03-31 11:11 | PCOTNOTE ---
Attempted OT evaluation this AM. Patient is being taken down for testing at this time.
--- NOTE | 2021-03-31 11:13 | PCPTNOTE ---
Started eval today, but unable to complete due to MD ordered STAT testing. Will attempt to complete PT eval at a later time once medically stable.
[2021-03-31 11:46] LABS: Lactic Acid Reflex 2.3 mmol/L (0.7-2.1)
[2021-03-31 11:53] LABS: Transferrin 276 mg/dL (206-381)
[2021-03-31 12:01] LABS: Iron 14 ug/dL (37-170)
[2021-03-31 12:10] LABS: Percent Iron Saturation 4 % (20-50)
[2021-03-31 12:33] LABS: Hematocrit 29.7 % (37.0-47.0); Hemoglobin 8.1 g/dL (12.0-15.0)
[2021-03-31] MEDS: metroNIDAZOLE 500 MG/ISO 100ML 500 MG/100 ML BAG 100 MG IVPB ×3 (12:38→23:13)
[2021-03-31 13:01] LABS: D Dimer 5.03 ug/mL (<0.48)
[2021-03-31 13:05] LABS: Folic Acid > 20.0 ng/mL (2.76->20)
[2021-03-31 13:34] LABS: Glucose Point of Care 159 mg/dl (65-105)
[2021-03-31 14:32] LABS: Reflex Lactic Acid Yes or No Add Lactic
[2021-03-31 15:41] LABS: Lactic Acid 1.5 mmol/L (0.7-2.1)
[2021-03-31 17:38] LABS: Glucose Point of Care 135 mg/dl (65-105)
[2021-03-31] MEDS: ENOXAPARIN 40 MG/0.4 ML SYRINGE SUB-Q (18:23)
[2021-03-31] MEDS: PANTOPRAZOLE SODIUM IV 40 MG VIAL IV PUSH ×2 (18:23→20:51)
[2021-03-31 20:30] LABS: Glucose Point of Care 151 mg/dl (65-105)
[2021-03-31] MEDS: MELATONIN 5 MG TABLET PO (20:51)
[2021-03-31] MEDS: carvediloL 3.125 MG TABLET PO (20:52)
[2021-03-31] MEDS: CENTRAL LINE FLUSH 10 ML IV PUSH (23:14)
[2021-04-01] VITALS (17 sets, daily range): BP systolic 118–150; BP diastolic 49–85; PULSE 65–106; RESP 18–22; TEMP 36.2–36.8; O2SAT 94–100
[2021-04-01] MEDS: HALOPERIDOL LACTATE 5 MG/ML VIAL IM (00:53)
[2021-04-01] MEDS: LORazepam INJ (*CRX) 2 MG/ML VIAL (02:02)
[2021-04-01] MEDS: diphenhydrAMINE HCl INJ 50 MG/ML VIAL (02:02)
[2021-04-01 04:36] LABS: INR 1.5; Prothrombin Time 18.1 Seconds (11.1-14.7)
[2021-04-01 04:39] LABS: Alanine Aminotransferase 19 U/L (4-35); Albumin Level 2.9 g/dL (3.5-5.1); Alkaline Phosphatase 86 U/L (38-126); Anion Gap 9 mmol/L (8-16); Aspartate Amino Transferase 34 U/L (14-36); Blood Urea Nitrogen 27 mg/dL (7-17); CRP 4.6 mg/dL (<1.0); Calcium 9.5 mg/dL (8.4-10.2); Carbon Dioxide 24 mmol/L (22-30); Chloride 106 mmol/L (98-107); Estimated CRCL calculation 27 ml/min; Estimated Glomerular Filt Rate 36; Glucose 141 mg/dL (65-110); Magnesium 1.5 mg/dL (1.6-2.3); Sodium 139 mmol/L (137-145)
[2021-04-01 04:40] LABS: Hemoglobin A1C 8.3 % (<5.7)
[2021-04-01 04:51] LABS: Basophils Percent Auto 0.2 % (0.2-1.2); Eosinophils Absolute Auto 0.1 K/mm3 (0-0.3); Eosinophils Percent Auto 0.6 % (0-4.4); Hematocrit 28.9 % (37.0-47.0); Hemoglobin 8.1 g/dL (12.0-15.0); Immature Granulocyte Absolute 0.06 K/mm3 (0.00-0.031); Immature Granulocyte Percent A 0.7 % (0-0.5); Lymphocytes Percent Auto 11.4 % (18.3-44.2); Mean Corpuscular Hemoglobin 23.4 pg (26-34); Mean Corpuscular Volume 83.5 fl (80-100); Monocytes Absolute Auto 0.8 K/mm3 (0.1-0.6); Monocytes Percent Auto 8.9 % (2.6-8.5); Neutrophils Absolute Auto 6.9 K/mm3 (1.3-6.7); Neutrophils Percent Auto 78.2 % (45.5-73.1); Nucleated Red Blood Cells Absolute Auto 0.1 K/mm3 (0.0-0.012); Nucleated Red Blood Cells Perc 0.6 % (0.0-0.2); Platelet Count Result 254 k/mm3 (150-375); Red Blood Count 3.46 M/mm3 (4.2-5.4); Red Cell Distribution Width 19.3 % (11.5-14.5); White Blood Count 8.8 K/mm3 (4.5-10.0)
[2021-04-01 04:52] LABS: D Dimer 5.75 ug/mL (<0.48)
[2021-04-01 05:15] LABS: Anisocytosis 3+ (NORMAL); Ovalocytes 1+ (NORMAL); Platelet Estimate Adequate (Adequate); Target Cells 1+ (NORMAL)
[2021-04-01 05:16] LABS: Hypochromasia 3+ (NORMAL); Tear Drop Cells 1+ (NORMAL)
[2021-04-01 05:17] LABS: Atypical Lymphocytes Present
[2021-04-01] MEDS: metroNIDAZOLE 500 MG/ISO 100ML 500 MG/100 ML BAG 100 MG IVPB ×4 (05:22→23:35)
[2021-04-01] MEDS: CENTRAL LINE FLUSH 10 ML IV PUSH ×4 (05:23→21:20)
--- NOTE | 2021-04-01 08:38 | PCOTNOTE ---
Attempted to evaluate. Nurse reported pt. had just been taken off restraints due to aggravated and harmful nature last night. Pt. asleep with sitter, attempted to awake. Pt. remained asleep. Will follow up later.
[2021-04-01 08:50] LABS: Glucose Point of Care 142 mg/dl (65-105)
[2021-04-01] MEDS: FUROSEMIDE INJ 40 MG/4 ML VIAL IV PUSH (09:43)
[2021-04-01] MEDS: ENOXAPARIN 40 MG/0.4 ML SYRINGE SUB-Q (09:43)
--- NOTE | 2021-04-01 10:14 | PCOTNOTE ---
Attempted OT Evaluation, per RN hold therapy today, will follow and attempt tomorrow.
--- NOTE | 2021-04-01 10:24 | PCPTNOTE ---
Attempted PT Evaluation, per RN hold therapy today due to only responsive to painful stimuli and not appropriate at this time, will follow and attempt tomorrow.
[2021-04-01 12:19] LABS: Glucose Point of Care 134 mg/dl (65-105)
[2021-04-01] MEDS: PANTOPRAZOLE SODIUM IV 40 MG VIAL IV PUSH ×2 (12:21→21:19)
--- NOTE | 2021-04-01 15:31 | PM.PNCARD ---
Progress Note: A&P Assessment and Plan (1) Acute on chronic diastolic CHF (congestive heart failure): Code(s): I50.33 - Acute on chronic diastolic (congestive) heart failure Status: Acute Assessment and Plan: Patient presents with new onset of CHF, presumably diastolic. Diuresing well with IV furosemide. Continue IV for now -consider shifting to oral tomorrow. BLACK-inhibitor and beta-myranda resumed Daily BMP Echo showed severely reduced systolic function with EF 25-30%, grade II diastolic dysfunction. moderate MR, moderate TR. Mass noted in LV, thought to represent calcified papillary muscle. Trivial pericardial effusion also seen. (2) Elevated troponin: Code(s): R77.8 - Other specified abnormalities of plasma proteins Status: Acute Assessment and Plan: Elevated troponins but flat, no history of chest pain, no ischemic EKG changes. Doubt ACS. Elevated troponins are secondary to CHF. (3) Hypertension: Code(s): I10 - Essential (primary) hypertension Status: Acute Assessment and Plan: Off medications recently; resumed. (4) Elevated lactic acid level: Code(s): R79.89 - Other specified abnormal findings of blood chemistry Status: Acute Assessment and Plan: Mildly elevated lactic acid level. Blood cultures pending. Colitis, on abx now (5) Acute renal insufficiency: Code(s): N28.9 - Disorder of kidney and ureter, unspecified Status: Acute Assessment and Plan: Elevated creatinine noted on admission. Daily BMP. (6) T2DM (type 2 diabetes mellitus): Code(s): E11.9 - Type 2 diabetes mellitus without complications Status: Acute Assessment and Plan: Uncontrolled. (7) PVCs (premature ventricular contractions): Code(s): I49.3 - Ventricular premature depolarization Status: Acute Assessment and Plan: Chronic PVCs, noted on telemetry today. (8) Dementia: Code(s): F03.90 - Unspecified dementia without behavioral disturbance Status: Acute Subjective Date/time seen: 04/01/21 15:31 Cardiology follow up for CHF Date of service 04/01/2021: Diuresing well with IV furosemide. No LE edema today. Chest CTA today showed acute segmental PE in all lobes - she has been stated on a heparin drip. Review of Systems Constitutional: Constitutional: Reports weakness Eyes: Eyes: Reports no additional eye complaints ENT: Denies epistaxis and Denies neck pain Cardiovascular: Cardiovascular: Denies chest pain, Reports pedal edema, Reports leg edema, Denies lightheadedness, Reports dyspnea and Reports dyspnea on exertion Respiratory: Respiratory: Reports cough, Reports dyspnea and Reports dyspnea on exertion Gastrointestinal: Gastrointestinal: Denies abdominal pain and Reports diarrhea Genitourinary: Genitourinary: Denies hematuria Musculoskeletal: Musculoskeletal: Denies back pain and Denies neck pain Integumentary/Breasts: Skin/Breast: Denies rash and Denies wounds Neurologic: Reports behavioral changes, Reports confusion and Reports weakness Psychiatric: Psychiatric: Reports behavioral changes and Reports confusion Exam Const: General: comfortable and no acute distress Orientation/consciousness: lethargic HENMT: Head: normal to inspection Mouth: Yes moist mucous membranes Eyes: EOM: EOMs intact bilaterally Neck: Neck: supple and no JVD Thyroid: thyroid normal Carotids: no bruits Lymphatic: lymphadenopathy not noted Resp: Effort & Inspection: normal respiratory effort and tachypneic (mild) Auscultation: diminished lung sounds Cardio: Rate: regular rate Rhythm: regular rhythm Heart sounds: no murmurs Other: Intact dorsalis pedis pulses Urinary Catheter: U
--- NOTE | 2021-04-01 16:55 | PM.IMPN ---
Progress Note: A&P Assessment and Plan (1) Sepsis: Code(s): A41.9 - Sepsis, unspecified organism Status: Acute Assessment and Plan: Patient meets criteria for sepsis in the setting of tachycardia, tachypnea, leukocytosis, and elevated lactic acid level on arrival. Could be in the acute setting of urinary tract infection verses abdominal infection verses ischemic bowel Patient was started on IV Levaquin from the emergency room for possible urinary tract infection (#3), started on Flagyl (#2) for possible colitis due to diarrhea Repeat lactic acid is improving at 2.3 from 2.8 yesterday. ABG was completed due to tachypnea which showed respiratory alkalosis with a pH of 7.5, pCO2 29, PO2 69 on room air, within normal serum bicarb at 22. She is not acidotic at this time which would be concerning for acute bowel ischemia versus worsening infection. White blood cell count down to normal, neutrophil count improved with IV antibiotics. CT abdomen pelvis rule out bowel ischemia showed colitis anasarca and ascites Patient otherwise mentally seems to have no encephalopathy at this time and at her baseline. currently encephalopathic from increasing confusion Still pending urine culture and blood culture results Continue monitoring Vital signs, CBC daily, lactic until normal (2) CHF (congestive heart failure): Code(s): I50.9 - Heart failure, unspecified Status: Acute Assessment and Plan: Patient with no known history of congestive heart failure or on any diuretics, has been collecting fluid over the last few months that family have noticed. BNP is greater than 35,000, Chest x-ray shows cardiomegaly, mild pulmonary edema and bilateral bases and small bilateral pleural effusions 3+ pitting edema to lower extremities and abdominal wall= anasarca She was started on IV Lasix 40 mg b.i.d. Strict intake, output and weights daily Cardiology was consulted and their input is greatly appreciated Echocardiogram reviewed EF visually 25-30% calculated 40% with severe global hypokinesis along with grade 2 diastolic dysfunction moderate MR moderate TR and mild pulmonary hypertension echogenic mass noted in the left ventricle probably a calcified papillary muscle ruptured a rather than a thrombus Continue monitoring fluid status, renal function, electrolytes with diuresis Cardiology on board (3) Acute UTI: Code(s): N39.0 - Urinary tract infection, site not specified Status: Acute Assessment and Plan: Possible urinary tract infection, but has many squamous cell so could be contamination. She was started on IV Levaquin in the emergency room which is continued . Seems her mental status has improved for her family members. Continue this treatment until urine culture and blood cultures return. 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 Patient has diffuse abdominal distension, frequent diarrhea, elevated lactic, tachypnea, so a CT abdomen pelvis with contrast which findings of colitis continue current antibiotic Continue monitoring symptoms. (5) Elevated troponin: Code(s): R77.8 - Other specified abnormalities of plasma proteins Status: Acute Assessment and Plan: Troponins are elevated at 0.30, 0.32, 0.30. Be elevated from CHF exacerbation fluid overload since they are flat. Cardiology has been consult Neuro input is greatly appreciated. (6) Acute renal insufficiency: Code(s): N28.9 - Disorder of kidney and ureter, unspecified Status
[2021-04-01] MEDS: HEPARIN SOD/D5W 100 UNITS/ML 25,000 UNITS/250 ML BAG 12 UNITS IV CONT (16:56)
[2021-04-01] MEDS: MAGNESIUM SULF 2 GM/WATER 50ML 2 GM/50 ML BAG IVPB (16:58)
[2021-04-01 16:59] LABS: Glucose Point of Care 103 mg/dl (65-105)
[2021-04-01 17:00] LABS: Basophils Percent Auto 0.2 % (0.2-1.2); Eosinophils Absolute Auto 0.1 K/mm3 (0-0.3); Eosinophils Percent Auto 0.6 % (0-4.4); Hematocrit 30.3 % (37.0-47.0); Hemoglobin 8.6 g/dL (12.0-15.0); Immature Granulocyte Absolute 0.04 K/mm3 (0.00-0.031); Immature Granulocyte Percent A 0.4 % (0-0.5); Lymphocytes Absolute Auto 1.12 K/mm3 (0.9-3.2); Lymphocytes Percent Auto 12.1 % (18.3-44.2); Mean Corpuscular HGB Conc 28.4 g/dl (32-36); Mean Corpuscular Hemoglobin 23.4 pg (26-34); Mean Corpuscular Volume 82.6 fl (80-100); Mean Platelet Volume 10.9 fl (7.4-10.4); Monocytes Absolute Auto 0.9 K/mm3 (0.1-0.6); Monocytes Percent Auto 9.9 % (2.6-8.5); Neutrophils Absolute Auto 7.1 K/mm3 (1.3-6.7); Neutrophils Percent Auto 76.8 % (45.5-73.1); Nucleated Red Blood Cells Absolute Auto 0.1 K/mm3 (0.0-0.012); Nucleated Red Blood Cells Perc 0.8 % (0.0-0.2); Platelet Count Result 260 k/mm3 (150-375); Red Blood Count 3.67 M/mm3 (4.2-5.4); Red Cell Distribution Width 19.6 % (11.5-14.5); White Blood Count 9.3 K/mm3 (4.5-10.0)
[2021-04-01 17:10] LABS: INR 1.6; Prothrombin Time 18.3 Seconds (11.1-14.7)
[2021-04-01 17:11] LABS: Ammonia < 9 umol/L (9-30)
[2021-04-01 17:12] LABS: Partial Thromboplastin Time 47.6 SECONDS (22.3-36.8)
[2021-04-01 17:14] LABS: Platelet Estimate Adequate (Adequate)
[2021-04-01 17:15] LABS: Acanthocytes 1+ (NORMAL); Anisocytosis 1+ (NORMAL); Hypochromasia 1+ (NORMAL); Poikilocytosis 1+ (NORMAL)
[2021-04-01 20:44] LABS: Glucose Point of Care 119 mg/dl (65-105)
[2021-04-01] MEDS: carvediloL 3.125 MG TABLET PO (21:19)
[2021-04-01] MEDS: MELATONIN 5 MG TABLET PO (21:20)
[2021-04-01] MEDS: HALOPERIDOL LACTATE 5 MG/ML VIAL 10 MG IM (22:40)
[2021-04-02] VITALS (17 sets, daily range): BP systolic 98–114; BP diastolic 40–90; PULSE 80–101; RESP 20–22; TEMP 36.4–36.7; O2SAT 92–97
[2021-04-02 01:35] LABS: Partial Thromboplastin Time > 200.0 SECONDS (22.3-36.8)
[2021-04-02] MEDS: metroNIDAZOLE 500 MG/ISO 100ML 500 MG/100 ML BAG 100 MG IVPB ×3 (05:12→18:14)
[2021-04-02] MEDS: CENTRAL LINE FLUSH 10 ML IV PUSH ×4 (05:15→21:08)
[2021-04-02 06:15] LABS: Basophils Percent Auto 0.3 % (0.2-1.2); Eosinophils Absolute Auto 0.1 K/mm3 (0-0.3); Hematocrit 27.8 % (37.0-47.0); Hemoglobin 7.8 g/dL (12.0-15.0); Immature Granulocyte Absolute 0.08 K/mm3 (0.00-0.031); Immature Granulocyte Percent A 0.9 % (0-0.5); Lymphocytes Absolute Auto 1.11 K/mm3 (0.9-3.2); Mean Corpuscular HGB Conc 28.1 g/dl (32-36); Mean Corpuscular Hemoglobin 22.9 pg (26-34); Mean Corpuscular Volume 81.8 fl (80-100); Mean Platelet Volume 11.3 fl (7.4-10.4); Monocytes Absolute Auto 0.8 K/mm3 (0.1-0.6); Monocytes Percent Auto 8.4 % (2.6-8.5); Neutrophils Absolute Auto 7.2 K/mm3 (1.3-6.7); Neutrophils Percent Auto 77.4 % (45.5-73.1); Nucleated Red Blood Cells Absolute Auto 0.1 K/mm3 (0.0-0.012); Nucleated Red Blood Cells Perc 0.8 % (0.0-0.2); Platelet Count Result 280 k/mm3 (150-375); Red Cell Distribution Width 19.8 % (11.5-14.5); White Blood Count 9.3 K/mm3 (4.5-10.0)
[2021-04-02 06:48] LABS: Alanine Aminotransferase 18 U/L (4-35); Albumin Level 2.8 g/dL (3.5-5.1); Alkaline Phosphatase 79 U/L (38-126); Anion Gap 8 mmol/L (8-16); Aspartate Amino Transferase 38 U/L (14-36); Bilirubin,Total 1.1 mg/dL (0.2-1.3); Blood Urea Nitrogen 24 mg/dL (7-17); Calcium 9.4 mg/dL (8.4-10.2); Carbon Dioxide 27 mmol/L (22-30); Chloride 105 mmol/L (98-107); Estimated CRCL calculation 29 ml/min; Estimated Glomerular Filt Rate 39; Glucose 137 mg/dL (65-110); Magnesium 1.8 mg/dL (1.6-2.3); Potassium 3.4 mmol/L (3.4-5.0); Sodium 140 mmol/L (137-145)
[2021-04-02 07:28] LABS: Anisocytosis 2+ (NORMAL); Hypochromasia 1+ (NORMAL); Microcytosis 1+ (NORMAL); Ovalocytes 1+ (NORMAL); Platelet Estimate Adequate (Adequate)
[2021-04-02 09:00] LABS: Glucose Point of Care 99 mg/dl (65-105)
[2021-04-02] MEDS: lisinopriL 5 MG TABLET PO (09:28)
[2021-04-02] MEDS: carvediloL 3.125 MG TABLET PO ×2 (09:28→21:05)
[2021-04-02] MEDS: PANTOPRAZOLE SODIUM IV 40 MG VIAL IV PUSH ×2 (09:29→21:05)
[2021-04-02] MEDS: FUROSEMIDE INJ 40 MG/4 ML VIAL IV PUSH (09:29)
[2021-04-02] MEDS: SIMVASTATIN 20 MG TABLET PO (09:29)
--- NOTE | 2021-04-02 09:56 | PM.IMPN ---
Progress Note: A&P Assessment and Plan (1) Sepsis: Code(s): A41.9 - Sepsis, unspecified organism Status: Acute Assessment and Plan: (2) CHF (congestive heart failure): Code(s): I50.9 - Heart failure, unspecified Status: Acute Assessment and Plan: (3) Acute UTI: Code(s): N39.0 - Urinary tract infection, site not specified Status: Acute Assessment and Plan: (4) History of ischemic bowel disease: Code(s): Z87.19 - Personal history of other diseases of the digestive system Status: Acute Assessment and Plan: (5) Elevated troponin: Code(s): R77.8 - Other specified abnormalities of plasma proteins Status: Acute Assessment and Plan: (6) Acute renal insufficiency: Code(s): N28.9 - Disorder of kidney and ureter, unspecified Status: Acute Assessment and Plan: (7) T2DM (type 2 diabetes mellitus): Code(s): E11.9 - Type 2 diabetes mellitus without complications Status: Acute Assessment and Plan: (8) Hypertension: Code(s): I10 - Essential (primary) hypertension Status: Acute Assessment and Plan: (9) Chronic diarrhea: Code(s): K52.9 - Noninfective gastroenteritis and colitis, unspecified Status: Acute Assessment and Plan: (10) Normocytic anemia: Code(s): D64.9 - Anemia, unspecified Status: Acute Assessment and Plan: (11) Acute pulmonary embolism: Code(s): I26.99 - Other pulmonary embolism without acute cor pulmonale Status: Acute Assessment and Plan: (12) Acute DVT (deep venous thrombosis): Code(s): I82.409 - Acute embolism and thrombosis of unspecified deep veins of unspecified lower extremity Status: Acute Assessment and Plan: (13) Anasarca: Code(s): R60.1 - Generalized edema Status: Acute Additional Plan 03/31/21 Patient's labs shows iron deficiency anemia-family says no acute signs of GI bleeding, dark tarry stools bright red blood in her stools, could be chronic in nature. Will give IV Venofer 300 mg for 3 days. Need various sulfate upon discharge. patient is still tachypneic with an elevated D-dimer at 5.03-unable to get CTA of chest to rule out pulmonary embolism since we already had a CT abdomen pelvis with contrast earlier today. Completed the Wells criteria and show she is at low risk given everything else going on-pleural effusions, pulmonary edema, anasarca, large amount of ascites, as well as tachypnea being caused from sepsis with lactic acidosis in the setting of colitis versus UTI. Will be NPO after midnight for CTA of chest rule out PE and started on Lovenox 40 mg subQ daily for DVT prophylaxis until further imaging can be done. Also ordered venous Doppler ultrasounds bilaterally to rule out DVT due to pitting edema and leg swelling. Angular Developer also going to read echocardiogram to see if she sees any type of right heart strain which would tell us if she is at a higher risk of having a pulmonary embolism and may switch to acute treatment. will decrease diuretics from Lasix 40 mg IV b.i.d. to daily. She has already put out 3 L of urine with the 1st dose of IV Lasix this morning. And her blood pressure is soft at 105 systolic. Recheck electrolytes and BMP in the morning. normal vitamin B12, folic acid, TSH. abdominal CT showing Diffuse wall thickening of the mid to distal colon consistent with colitis which most
[2021-04-02 10:54] LABS: Partial Thromboplastin Time > 200.0 SECONDS (22.3-36.8)
[2021-04-02 12:16] LABS: Glucose Point of Care 126 mg/dl (65-105)
--- NOTE | 2021-04-02 15:39 | PM.PNCARD ---
Progress Note: A&P Assessment and Plan (1) Acute on chronic diastolic CHF (congestive heart failure): Code(s): I50.33 - Acute on chronic diastolic (congestive) heart failure Status: Acute Assessment and Plan: Patient presents with new onset of CHF. Combined systolic and diastolic dysfunction. Diuresing well with IV furosemide. Fluid balance -7.5L for this admission. Appears euvolemic on exam. Will shift to oral lasix. BLACK-inhibitor and beta-myranda resumed Renal function stable with diuresis. Trend daily BMP Echo showed severely reduced systolic function with EF 25-30%, grade II diastolic dysfunction. moderate MR, moderate TR. Mass noted in LV, thought to represent calcified papillary muscle. Trivial pericardial effusion also seen. (2) Elevated troponin: Code(s): R77.8 - Other specified abnormalities of plasma proteins Status: Acute Assessment and Plan: Elevated troponins but flat, no history of chest pain, no ischemic EKG changes. Doubt ACS. Elevated troponins are secondary to CHF. (3) Hypertension: Code(s): I10 - Essential (primary) hypertension Status: Acute Assessment and Plan: Off medications recently; resumed. (4) Elevated lactic acid level: Code(s): R79.89 - Other specified abnormal findings of blood chemistry Status: Acute Assessment and Plan: Mildly elevated lactic acid level. Blood cultures pending. Colitis, on abx now (5) Acute renal insufficiency: Code(s): N28.9 - Disorder of kidney and ureter, unspecified Status: Acute Assessment and Plan: Elevated creatinine noted on admission. Daily BMP. (6) T2DM (type 2 diabetes mellitus): Code(s): E11.9 - Type 2 diabetes mellitus without complications Status: Acute Assessment and Plan: Uncontrolled. (7) PVCs (premature ventricular contractions): Code(s): I49.3 - Ventricular premature depolarization Status: Acute Assessment and Plan: Chronic PVCs, noted on telemetry today. (8) Dementia: Code(s): F03.90 - Unspecified dementia without behavioral disturbance Status: Acute Additional Plan Addendum: CT results noted, with colitis, ascites, effusion etc.. Follow-up chest x-ray looks worse with more CHF, personally reviewed Diuresing well today with Lasix and so far hemodynamically stable. On antibiotics now. Continue current therapy. Subjective Date/time seen: 04/02/21 15:39 Interval history: Cardiology follow-up for CHF paragraph Date of service 04/02/2021: Somewhat somnolent this afternoon but more alert compared to when I saw her yesterday. She does not have any complaints today. When I asked her how she is feeling she states, ?can't complain. ? Review of Systems Review of Systems: ROS unobtainable: Yes unobtainable due to mental status Exam Narrative: Older female lying comfortably in bed. Awake and alert but not oriented Const: General: comfortable, no acute distress and lethargic Orientation/consciousness: lethargic HENMT: Head: normal to inspection Mouth: Yes moist mucous membranes Eyes: EOM: EOMs intact bilaterally Neck: Neck: supple and no JVD Thyroid: thyroid normal Carotids: no bruits Lymphatic: lymphadenopathy not noted Resp: Effort & Inspection: normal respiratory effort and tachypneic (mild) Auscultation: diminished lung sounds Other: Mild tachypnea, decreased breath sounds left lower lobe Cardio: Rate: regular rate Rhythm: regular rhythm Heart sounds: no murmurs Other: Intact dorsalis pedis pulses Urinary Catheter: Urinary Catheter: patent and draining and urine clear Skin: General skin exam: normal color and no rashes or lesions noted Neuro: Cognition (
[2021-04-02 16:46] LABS: Glucose Point of Care 174 mg/dl (65-105)
[2021-04-02] MEDS: FUROSEMIDE 40 MG TABLET PO (18:15)
[2021-04-02] MEDS: MELATONIN 5 MG TABLET PO (18:15)
[2021-04-02 19:36] LABS: Partial Thromboplastin Time > 200.0 SECONDS (22.3-36.8)
[2021-04-02 20:18] LABS: Glucose Point of Care 189 mg/dl (65-105)
[2021-04-02] MEDS: HEPARIN SOD/D5W 100 UNITS/ML 25,000 UNITS/250 ML BAG 8 UNITS IV CONT (21:06)
[2021-04-02 22:13] LABS: Partial Thromboplastin Time > 200.0 SECONDS (22.3-36.8)
[2021-04-03] VITALS (22 sets, daily range): BP systolic 104–122; BP diastolic 40–57; PULSE 77–106; RESP 18–24; TEMP 36.1–37.1; O2SAT 92–96
[2021-04-03] MEDS: metroNIDAZOLE 500 MG/ISO 100ML 500 MG/100 ML BAG 100 MG IVPB ×5 (00:22→23:30)
[2021-04-03] MEDS: CENTRAL LINE FLUSH 10 ML IV PUSH ×4 (05:26→20:49)
[2021-04-03] MEDS: MORPHINE SULFATE (*CRX) 2 MG/ML INJ IV PUSH (05:26)
[2021-04-03 09:51] LABS: Glucose Point of Care 170 mg/dl (65-105)
[2021-04-03 09:52] LABS: Basophils Percent Auto 0.2 % (0.2-1.2); Hematocrit 21.2 % (37.0-47.0); Immature Granulocyte Absolute 0.11 K/mm3 (0.00-0.031); Immature Granulocyte Percent A 0.9 % (0-0.5); Lymphocytes Absolute Auto 1.08 K/mm3 (0.9-3.2); Lymphocytes Percent Auto 8.7 % (18.3-44.2); Mean Corpuscular HGB Conc 26.9 g/dl (32-36); Mean Corpuscular Volume 85.5 fl (80-100); Mean Platelet Volume 11.7 fl (7.4-10.4); Monocytes Absolute Auto 0.9 K/mm3 (0.1-0.6); Monocytes Percent Auto 6.8 % (2.6-8.5); Neutrophils Absolute Auto 10.4 K/mm3 (1.3-6.7); Neutrophils Percent Auto 83.4 % (45.5-73.1); Nucleated Red Blood Cells Absolute Auto 0.1 K/mm3 (0.0-0.012); Nucleated Red Blood Cells Perc 1.1 % (0.0-0.2); Platelet Count Result 298 k/mm3 (150-375); Red Blood Count 2.48 M/mm3 (4.2-5.4); Red Cell Distribution Width 19.9 % (11.5-14.5); White Blood Count 12.4 K/mm3 (4.5-10.0)
[2021-04-03] MEDS: PANTOPRAZOLE SODIUM IV 40 MG VIAL IV PUSH ×2 (09:56→20:47)
[2021-04-03 10:04] LABS: Hemoglobin 5.7 g/dL (12.0-15.0)
[2021-04-03 10:12] LABS: Partial Thromboplastin Time 99.3 SECONDS (22.3-36.8)
[2021-04-03 10:13] LABS: Alanine Aminotransferase 18 U/L (4-35); Albumin Level 2.8 g/dL (3.5-5.1); Alkaline Phosphatase 71 U/L (38-126); Anion Gap 12 mmol/L (8-16); Aspartate Amino Transferase 38 U/L (14-36); Bilirubin,Total 1.2 mg/dL (0.2-1.3); Blood Urea Nitrogen 21 mg/dL (7-17); Carbon Dioxide 24 mmol/L (22-30); Chloride 106 mmol/L (98-107); Estimated CRCL calculation 29 ml/min; Estimated Glomerular Filt Rate 39; Glucose 184 mg/dL (65-110); Magnesium 1.6 mg/dL (1.6-2.3); Potassium 3.4 mmol/L (3.4-5.0); Sodium 142 mmol/L (137-145)
[2021-04-03 10:46] LABS: Hypochromasia 2+ (NORMAL); Platelet Estimate Adequate (Adequate)
[2021-04-03 10:47] LABS: Acanthocytes 1+ (NORMAL); Anisocytosis 2+ (NORMAL); Poikilocytosis 2+ (NORMAL)
[2021-04-03] MEDS: LIDOCAINE HCL 1% PF INJ 5 ML VIAL INFILTRATE (12:15)
[2021-04-03 13:11] LABS: Glucose Point of Care 183 mg/dl (65-105)
[2021-04-03 14:13] LABS: Glucose Point of Care 161 mg/dl (65-105)
--- NOTE | 2021-04-03 15:16 | PM.PNCARD ---
Progress Note: A&P Assessment and Plan (1) Acute on chronic diastolic CHF (congestive heart failure): Code(s): I50.33 - Acute on chronic diastolic (congestive) heart failure Status: Deleted Assessment and Plan: Patient presents with new onset of CHF. Combined systolic and diastolic dysfunction. Diuresing well. Fluid balance -7.5L for this admission. Appears euvolemic on exam. Now on oral lasix. Repeat CXR BLACK-inhibitor and beta-myranda resumed Renal function stable with diuresis. Trend daily BMP Echo showed severely reduced systolic function with EF 25-30%, grade II diastolic dysfunction. moderate MR, moderate TR. Mass noted in LV, thought to represent calcified papillary muscle. Trivial pericardial effusion also seen. (2) Elevated troponin: Code(s): R77.8 - Other specified abnormalities of plasma proteins Status: Acute Assessment and Plan: Elevated troponins but flat, no history of chest pain, no ischemic EKG changes. Doubt ACS. Elevated troponins are secondary to CHF. (3) Hypertension: Code(s): I10 - Essential (primary) hypertension Status: Acute Assessment and Plan: Off medications recently; resumed. (4) Elevated lactic acid level: Code(s): R79.89 - Other specified abnormal findings of blood chemistry Status: Acute Assessment and Plan: Mildly elevated lactic acid level. Blood cultures pending. Colitis, on abx now (5) Acute renal insufficiency: Code(s): N28.9 - Disorder of kidney and ureter, unspecified Status: Acute Assessment and Plan: Elevated creatinine noted on admission. Daily BMP. (6) T2DM (type 2 diabetes mellitus): Code(s): E11.9 - Type 2 diabetes mellitus without complications Status: Acute Assessment and Plan: Uncontrolled. (7) PVCs (premature ventricular contractions): Code(s): I49.3 - Ventricular premature depolarization Status: Acute Assessment and Plan: Chronic PVCs, noted on telemetry today. (8) Dementia: Code(s): F03.90 - Unspecified dementia without behavioral disturbance Status: Acute Subjective Date/time seen: 04/03/21 15:16 Interval history: Cardiology follow-up for CHF paragraph Date of service 04/02/2021: Somewhat somnolent this afternoon but more alert compared to when I saw her yesterday. She does not have any complaints today. When I asked her how she is feeling she states, ?can't complain. ? Date of service 04/03/2021: Remains sleepy today but does not voice any complaints. Denies chest pain, shortness of breath. Review of Systems Review of Systems: ROS unobtainable: Yes unobtainable due to mental status Constitutional: Constitutional: Reports weakness Eyes: Eyes: Reports no additional eye complaints ENT: Denies epistaxis and Denies neck pain Cardiovascular: Cardiovascular: Denies chest pain, Reports pedal edema, Reports leg edema, Denies lightheadedness, Reports dyspnea and Reports dyspnea on exertion Respiratory: Respiratory: Reports cough, Reports dyspnea and Reports dyspnea on exertion Gastrointestinal: Gastrointestinal: Denies abdominal pain and Reports diarrhea Genitourinary: Genitourinary: Denies hematuria Musculoskeletal: Musculoskeletal: Denies back pain and Denies neck pain Integumentary/Breasts: Skin/Breast: Denies rash and Denies wounds Neurologic: Reports behavioral changes and Reports weakness Psychiatric: Psychiatric: Reports behavioral changes Exam Narrative: Older female lying comfortably in bed. Sleeping but easily awakens to voice. Not oriented Const: General: comfortable, no acute distress and lethargic Orientation/consciousness: lethargic HENMT: Head: normal to insp
--- NOTE | 2021-04-03 15:33 | PC.NURSE ---
Pt. was alert at times and able to answer questions but other times she seemed confused. Pt. wasn't able to answer person, place, and time questions but occasionally would answer yes and no questions.
--- NOTE | 2021-04-03 15:51 | PC.NURSE ---
On 04/03/21, the student, [Beatrice ], provided care and completed [facility] documentation on this patient. I have reviewed the student's documentation and agree with the findings.
[2021-04-03 16:48] LABS: Partial Thromboplastin Time 117.1 SECONDS (22.3-36.8)
[2021-04-03 17:22] LABS: Glucose Point of Care 167 mg/dl (65-105)
[2021-04-03] MEDS: MELATONIN 5 MG TABLET PO (18:00)
[2021-04-03] MEDS: FUROSEMIDE 40 MG TABLET PO (18:00)
--- NOTE | 2021-04-03 18:37 | PM.IMPN ---
Progress Note: A&P Assessment and Plan (1) Sepsis: Code(s): A41.9 - Sepsis, unspecified organism Status: Acute Assessment and Plan: (2) Acute UTI: Code(s): N39.0 - Urinary tract infection, site not specified Status: Acute Assessment and Plan: (3) History of ischemic bowel disease: Code(s): Z87.19 - Personal history of other diseases of the digestive system Status: Acute Assessment and Plan: (4) Elevated troponin: Code(s): R77.8 - Other specified abnormalities of plasma proteins Status: Acute Assessment and Plan: (5) Acute renal insufficiency: Code(s): N28.9 - Disorder of kidney and ureter, unspecified Status: Acute Assessment and Plan: (6) T2DM (type 2 diabetes mellitus): Code(s): E11.9 - Type 2 diabetes mellitus without complications Status: Acute Assessment and Plan: (7) Hypertension: Code(s): I10 - Essential (primary) hypertension Status: Acute Assessment and Plan: (8) Chronic diarrhea: Code(s): K52.9 - Noninfective gastroenteritis and colitis, unspecified Status: Acute Assessment and Plan: (9) Normocytic anemia: Code(s): D64.9 - Anemia, unspecified Status: Acute Assessment and Plan: (10) Acute pulmonary embolism: Code(s): I26.99 - Other pulmonary embolism without acute cor pulmonale Status: Acute Assessment and Plan: (11) Acute DVT (deep venous thrombosis): Code(s): I82.409 - Acute embolism and thrombosis of unspecified deep veins of unspecified lower extremity Status: Acute Assessment and Plan: (12) Anasarca: Code(s): R60.1 - Generalized edema Status: Acute (13) Dementia: Code(s): F03.90 - Unspecified dementia without behavioral disturbance Status: Acute (14) Systolic and diastolic CHF, acute on chronic: Code(s): I50.43 - Acute on chronic combined systolic (congestive) and diastolic (congestive) heart failure Status: Acute (15) PVCs (premature ventricular contractions): Code(s): I49.3 - Ventricular premature depolarization Status: Acute Additional Plan 03/31/21 Patient's labs shows iron deficiency anemia-family says no acute signs of GI bleeding, dark tarry stools bright red blood in her stools, could be chronic in nature. Will give IV Venofer 300 mg for 3 days. Need various sulfate upon discharge. patient is still tachypneic with an elevated D-dimer at 5.03-unable to get CTA of chest to rule out pulmonary embolism since we already had a CT abdomen pelvis with contrast earlier today. Completed the Wells criteria and show she is at low risk given everything else going on-pleural effusions, pulmonary edema, anasarca, large amount of ascites, as well as tachypnea being caused from sepsis with lactic acidosis in the setting of colitis versus UTI. Will be NPO after midnight for CTA of chest rule out PE and started on Lovenox 40 mg subQ daily for DVT prophylaxis until further imaging can be done. Also ordered venous Doppler ultrasounds bilaterally to rule out DVT due to pitting edema and leg swelling. Electric Meter Repairer Apprentice also going to read echocardiogram to see if she sees any type of right heart strain which would tell us if she is at a higher risk of having a pulmonary embolism and may switch to acute treatment. will decrease diuretics from Lasix 40 mg IV b.i.d. to daily. She has already put out 3 L of urine with the 1st dose of
[2021-04-03 20:37] LABS: Glucose Point of Care 201 mg/dl (65-105)
[2021-04-03] MEDS: carvediloL 3.125 MG TABLET PO (20:47)
[2021-04-03 23:11] LABS: Partial Thromboplastin Time 69.2 SECONDS (22.3-36.8)
[2021-04-03] MEDS: HEPARIN SODIUM 5,000 UNITS/ML VIAL 2500 UNITS IV PUSH (23:30)
[2021-04-04] VITALS (21 sets, daily range): BP systolic 105–137; BP diastolic 46–62; PULSE 87–105; RESP 16–28; TEMP 36–37.1; O2SAT 95–99
[2021-04-04] MEDS: MORPHINE SULFATE (*CRX) 2 MG/ML INJ IV PUSH ×2 (03:29→17:17)
[2021-04-04 06:18] LABS: Basophils Percent Auto 0.2 % (0.2-1.2); Eosinophils Percent Auto 0.2 % (0-4.4); Hematocrit 22.2 % (37.0-47.0); Immature Granulocyte Absolute 0.13 K/mm3 (0.00-0.031); Immature Granulocyte Percent A 1.2 % (0-0.5); Lymphocytes Absolute Auto 1.12 K/mm3 (0.9-3.2); Lymphocytes Percent Auto 10.5 % (18.3-44.2); Mean Corpuscular HGB Conc 29.7 g/dl (32-36); Mean Corpuscular Volume 84.1 fl (80-100); Mean Platelet Volume 10.1 fl (7.4-10.4); Monocytes Absolute Auto 0.9 K/mm3 (0.1-0.6); Monocytes Percent Auto 8.3 % (2.6-8.5); Neutrophils Absolute Auto 8.5 K/mm3 (1.3-6.7); Neutrophils Percent Auto 79.6 % (45.5-73.1); Nucleated Red Blood Cells Absolute Auto 0.1 K/mm3 (0.0-0.012); Nucleated Red Blood Cells Perc 0.8 % (0.0-0.2); Platelet Count Result 241 k/mm3 (150-375); Red Blood Count 2.64 M/mm3 (4.2-5.4); Red Cell Distribution Width 19.1 % (11.5-14.5); White Blood Count 10.7 K/mm3 (4.5-10.0)
[2021-04-04 06:28] LABS: Anion Gap 8 mmol/L (8-16); Blood Urea Nitrogen 21 mg/dL (7-17); Calcium 8.8 mg/dL (8.4-10.2); Carbon Dioxide 28 mmol/L (22-30); Chloride 106 mmol/L (98-107); Estimated CRCL calculation 24 ml/min; Estimated Glomerular Filt Rate 33; Glucose 186 mg/dL (65-110); Magnesium 1.5 mg/dL (1.6-2.3); Potassium 2.9 mmol/L (3.4-5.0); Sodium 142 mmol/L (137-145)
[2021-04-04] MEDS: metroNIDAZOLE 500 MG/ISO 100ML 500 MG/100 ML BAG 100 MG IVPB ×3 (07:22→18:16)
[2021-04-04 07:38] LABS: Partial Thromboplastin Time 174.7 SECONDS (22.3-36.8)
[2021-04-04 08:01] LABS: Hemoglobin 6.6 g/dL (12.0-15.0)
[2021-04-04 08:03] LABS: Platelet Estimate Adequate (Adequate)
[2021-04-04 08:04] LABS: Anisocytosis 2+ (NORMAL); Hypochromasia 2+ (NORMAL); Macrocytosis 1+ (NORMAL); Ovalocytes 1+ (NORMAL)
--- NOTE | 2021-04-04 08:20 | P.PNIM_ITS ---
Progress Note: A&P Assessment and Plan (1) Sepsis: Code(s): A41.9 - Sepsis, unspecified organism Status: Acute Assessment and Plan: (2) Acute UTI: Code(s): N39.0 - Urinary tract infection, site not specified Status: Acute Assessment and Plan: (3) History of ischemic bowel disease: Code(s): Z87.19 - Personal history of other diseases of the digestive system Status: Acute Assessment and Plan: (4) Elevated troponin: Code(s): R77.8 - Other specified abnormalities of plasma proteins Status: Acute Assessment and Plan: (5) Acute renal insufficiency: Code(s): N28.9 - Disorder of kidney and ureter, unspecified Status: Acute Assessment and Plan: (6) T2DM (type 2 diabetes mellitus): Code(s): E11.9 - Type 2 diabetes mellitus without complications Status: Acute Assessment and Plan: (7) Hypertension: Code(s): I10 - Essential (primary) hypertension Status: Acute Assessment and Plan: (8) Chronic diarrhea: Code(s): K52.9 - Noninfective gastroenteritis and colitis, unspecified Status: Acute Assessment and Plan: (9) Normocytic anemia: Code(s): D64.9 - Anemia, unspecified Status: Acute Assessment and Plan: (10) Acute pulmonary embolism: Code(s): I26.99 - Other pulmonary embolism without acute cor pulmonale Status: Acute Assessment and Plan: (11) Acute DVT (deep venous thrombosis): Code(s): I82.409 - Acute embolism and thrombosis of unspecified deep veins of unspecified lower extremity Status: Acute Assessment and Plan: (12) Anasarca: Code(s): R60.1 - Generalized edema Status: Acute (13) Dementia: Code(s): F03.90 - Unspecified dementia without behavioral disturbance Status: Acute (14) Systolic and diastolic CHF, acute on chronic: Code(s): I50.43 - Acute on chronic combined systolic (congestive) and diastolic (congestive) heart failure Status: Acute (15) PVCs (premature ventricular contractions): Code(s): I49.3 - Ventricular premature depolarization Status: Acute Additional Plan 03/31/21 Patient's labs shows iron deficiency anemia-family says no acute signs of GI bleeding, dark tarry stools bright red blood in her stools, could be chronic in nature. Will give IV Venofer 300 mg for 3 days. Need various sulfate upon discharge. patient is still tachypneic with an elevated D-dimer at 5.03-unable to get CTA of chest to rule out pulmonary embolism since we already had a CT abdomen pelvis with contrast earlier today. Completed the Wells criteria and show she is at low risk given everything else going on-pleural effusions, pulmonary edema, anasarca, large amount of ascites, as well as tachypnea being caused from sepsis with lactic acidosis in the setting of colitis versus UTI. Will be NPO after midnight for CTA of chest rule out PE and started on Lovenox 40 mg subQ daily for DVT prophylaxis until further imaging can be done. Also
[2021-04-04] MEDS: CENTRAL LINE FLUSH 10 ML IV PUSH ×3 (08:24→20:44)
[2021-04-04] MEDS: PANTOPRAZOLE SODIUM IV 40 MG VIAL IV PUSH ×2 (08:24→20:44)
[2021-04-04] MEDS: SIMVASTATIN 20 MG TABLET PO (08:24)
[2021-04-04] MEDS: FUROSEMIDE 40 MG TABLET PO (08:24)
[2021-04-04] MEDS: carvediloL 3.125 MG TABLET PO ×2 (08:24→20:43)
[2021-04-04] MEDS: lisinopriL 5 MG TABLET PO (08:24)
--- NOTE | 2021-04-04 09:25 | PM.PNCARD ---
Progress Note: A&P Assessment and Plan (1) Systolic and diastolic CHF, acute on chronic: Code(s): I50.43 - Acute on chronic combined systolic (congestive) and diastolic (congestive) heart failure Status: Acute Assessment and Plan: Patient presents with new onset of CHF. Combined systolic and diastolic dysfunction. Appears euvolemic on exam. Now on oral lasix. BLACK-inhibitor and beta-myranda resumed Renal function stable with diuresis. Trend daily BMP Echo showed severely reduced systolic function with EF 25-30%, grade II diastolic dysfunction. moderate MR, moderate TR. Mass noted in LV, thought to represent calcified papillary muscle. Trivial pericardial effusion also seen. (2) Elevated troponin: Code(s): R77.8 - Other specified abnormalities of plasma proteins Status: Acute Assessment and Plan: Elevated troponins but flat, no history of chest pain, no ischemic EKG changes. Doubt ACS. Elevated troponins are secondary to CHF. (3) Hypertension: Code(s): I10 - Essential (primary) hypertension Status: Acute Assessment and Plan: Off medications recently; resumed. (4) Elevated lactic acid level: Code(s): R79.89 - Other specified abnormal findings of blood chemistry Status: Acute Assessment and Plan: Mildly elevated lactic acid level. Blood cultures pending. Colitis, on abx now (5) Acute renal insufficiency: Code(s): N28.9 - Disorder of kidney and ureter, unspecified Status: Acute Assessment and Plan: Elevated creatinine noted on admission. Daily BMP. (6) T2DM (type 2 diabetes mellitus): Code(s): E11.9 - Type 2 diabetes mellitus without complications Status: Acute Assessment and Plan: Uncontrolled. (7) PVCs (premature ventricular contractions): Code(s): I49.3 - Ventricular premature depolarization Status: Acute Assessment and Plan: Chronic PVCs, noted on telemetry today. (8) Dementia: Code(s): F03.90 - Unspecified dementia without behavioral disturbance Status: Acute Subjective Date/time seen: 04/04/21 09:25 Interval history: Cardiology follow-up for CHF paragraph Date of service 04/02/2021: Somewhat somnolent this afternoon but more alert compared to when I saw her yesterday. She does not have any complaints today. When I asked her how she is feeling she states, ?can't complain. ? Date of service 04/03/2021: Remains sleepy today but does not voice any complaints. Denies chest pain, shortness of breath. Date of service 04/04/2021: Patient sitting up in the chair eating breakfast. Denies any shortness of breath, chest pain. Did have a drop in hemoglobin since yesterday with no active signs of bleeding, 1 unit of packed red blood cells has been ordered. She remains on heparin drip. Review of Systems Review of Systems: ROS unobtainable: Yes unobtainable due to mental status Constitutional: Constitutional: Reports weakness Eyes: Eyes: Reports no additional eye complaints ENT: Denies epistaxis and Denies neck pain Cardiovascular: Cardiovascular: Denies chest pain, Reports pedal edema, Reports leg edema, Denies lightheadedness, Reports dyspnea and Reports dyspnea on exertion Respiratory: Respiratory: Reports cough, Reports dyspnea and Reports dyspnea on exertion Gastrointestinal: Gastrointestinal: Denies abdominal pain and Reports diarrhea Genitourinary: Genitourinary: Denies hematuria Musculoskeletal: Musculoskeletal: Denies back pain and Denies neck pain Integumentary/Breasts: Skin/Breast: Denies rash and Denies wounds Neurologic: Reports behavioral changes and Reports weakness Psychiatric: Psychiatric: Reports behavioral changes Exam Narrative: Older female
[2021-04-04] MEDS: MAGNESIUM SULF 2 GM/WATER 50ML 2 GM/50 ML BAG IVPB (10:10)
[2021-04-04] MEDS: POTASSIUM CHLORIDE 20 MEQ PACKET (FOR LIQUID) 40 MEQ PO (10:11)
[2021-04-04 10:19] LABS: Glucose Point of Care 175 mg/dl (65-105)
[2021-04-04 13:35] LABS: Glucose Point of Care 199 mg/dl (65-105)
[2021-04-04 14:51] LABS: Partial Thromboplastin Time 49.8 SECONDS (22.3-36.8)
[2021-04-04] MEDS: HEPARIN SODIUM 5,000 UNITS/ML VIAL 5000 UNITS IV PUSH (15:06)
[2021-04-04] MEDS: HEPARIN SOD/D5W 100 UNITS/ML 25,000 UNITS/250 ML BAG 7 UNITS IV CONT (17:13)
[2021-04-04] MEDS: MELATONIN 5 MG TABLET PO (18:16)
[2021-04-04 18:57] LABS: Glucose Point of Care 199 mg/dl (65-105)
[2021-04-04 21:00] LABS: Hematocrit 25.6 % (37.0-47.0); Hemoglobin 7.7 g/dL (12.0-15.0)
[2021-04-04 21:05] LABS: Glucose Point of Care 194 mg/dl (65-105)
[2021-04-04 21:35] LABS: Partial Thromboplastin Time > 200.0 SECONDS (22.3-36.8)
[2021-04-05] VITALS (9 sets, daily range): BP systolic 118–136; BP diastolic 60–82; PULSE 87–101; RESP 16–18; TEMP 36.3–36.4; O2SAT 96–99
[2021-04-05] MEDS: metroNIDAZOLE 500 MG/ISO 100ML 500 MG/100 ML BAG 100 MG IVPB ×2 (00:02→05:12)
[2021-04-05] MEDS: MORPHINE SULFATE (*CRX) 2 MG/ML INJ IV PUSH (02:43)
[2021-04-05] MEDS: CENTRAL LINE FLUSH 10 ML IV PUSH (05:14)
[2021-04-05 05:33] LABS: Partial Thromboplastin Time 81.9 SECONDS (22.3-36.8)
[2021-04-05 09:01] LABS: Glucose Point of Care 159 mg/dl (65-105)
[2021-04-05] MEDS: SIMVASTATIN 20 MG TABLET PO (09:41)
[2021-04-05] MEDS: carvediloL 3.125 MG TABLET PO (09:41)
[2021-04-05] MEDS: FUROSEMIDE 40 MG TABLET PO (09:41)
[2021-04-05] MEDS: lisinopriL 5 MG TABLET PO (09:41)
[2021-04-05] MEDS: PANTOPRAZOLE SODIUM IV 40 MG VIAL IV PUSH (09:44)
--- NOTE | 2021-04-05 12:18 | PM.IMPN ---
Progress Note: A&P Assessment and Plan (1) Systolic and diastolic CHF, acute on chronic: Code(s): I50.43 - Acute on chronic combined systolic (congestive) and diastolic (congestive) heart failure Status: Acute (2) Anasarca: Code(s): R60.1 - Generalized edema Status: Acute (3) Acute DVT (deep venous thrombosis): Code(s): I82.409 - Acute embolism and thrombosis of unspecified deep veins of unspecified lower extremity Status: Acute Assessment and Plan: (4) Acute pulmonary embolism: Code(s): I26.99 - Other pulmonary embolism without acute cor pulmonale Status: Acute Assessment and Plan: (5) Normocytic anemia: Code(s): D64.9 - Anemia, unspecified Status: Acute Assessment and Plan: (6) History of ischemic bowel disease: Code(s): Z87.19 - Personal history of other diseases of the digestive system Status: Acute Assessment and Plan: (7) Sepsis: Code(s): A41.9 - Sepsis, unspecified organism Status: Acute Assessment and Plan: (8) Dementia: Code(s): F03.90 - Unspecified dementia without behavioral disturbance Status: Acute (9) Elevated lactic acid level: Code(s): R79.89 - Other specified abnormal findings of blood chemistry Status: Acute (10) PVCs (premature ventricular contractions): Code(s): I49.3 - Ventricular premature depolarization Status: Acute (11) Chronic diarrhea: Code(s): K52.9 - Noninfective gastroenteritis and colitis, unspecified Status: Acute Assessment and Plan: (12) T2DM (type 2 diabetes mellitus): Code(s): E11.9 - Type 2 diabetes mellitus without complications Status: Acute Assessment and Plan: (13) Hypertension: Code(s): I10 - Essential (primary) hypertension Status: Acute Assessment and Plan: (14) Acid reflux: Code(s): K21.9 - Gastro-esophageal reflux disease without esophagitis Status: Acute Additional Plan 03/31/21 Patient's labs shows iron deficiency anemia-family says no acute signs of GI bleeding, dark tarry stools bright red blood in her stools, could be chronic in nature. Will give IV Venofer 300 mg for 3 days. Need various sulfate upon discharge. patient is still tachypneic with an elevated D-dimer at 5.03-unable to get CTA of chest to rule out pulmonary embolism since we already had a CT abdomen pelvis with contrast earlier today. Completed the Wells criteria and show she is at low risk given everything else going on-pleural effusions, pulmonary edema, anasarca, large amount of ascites, as well as tachypnea being caused from sepsis with lactic acidosis in the setting of colitis versus UTI. Will be NPO after midnight for CTA of chest rule out PE and started on Lovenox 40 mg subQ daily for DVT prophylaxis until further imaging can be done. Also ordered venous Doppler ultrasounds bilaterally to rule out DVT due to pitting edema and leg swelling. [place] Reamer also going to read echocardiogram to see if she sees any type of right heart strain which would tell us if she is at a higher risk of having a pulmonary embolism and may switch to acute treatment. will decrease diuretics from Lasix 40 mg IV b.i.d. to daily. She has already put out 3 L of urine with the 1st dose of IV Lasix this morning. And her blood pressure is soft at 105 systolic. Recheck electrolytes and BMP in the morning. normal vitamin B12, folic acid, TSH. abdominal CT showing Diffuse wall thickening of the mid to distal colon consistent with colitis which most likely infectious or inflammatory in etiology.
--- NOTE | 2021-04-05 12:53 | PM.DS ---
DS: Admitting Diagnosis Discharge Date 04/05/21 Admitting Diagnosis (1) CHF (congestive heart failure): Code(s): I50.9 - Heart failure, unspecified Status: Acute Assessment and Plan: Admit to telemetry unit Patient was not taking her medications Restart home medication Aggressive diuresis Daily intake and output Echocardiogram in a.m. Cardiology consult (2) Elevated troponin: Code(s): R77.8 - Other specified abnormalities of plasma proteins Status: Acute Assessment and Plan: Trend troponins EKG with no acute changes (3) Acute renal insufficiency: Code(s): N28.9 - Disorder of kidney and ureter, unspecified Status: Acute Assessment and Plan: Patient with a creatinine of 1.4 prior creatinine was below 1 BUN is relatively normal Continue to monitor BUN and creatinine (4) Acute UTI: Code(s): N39.0 - Urinary tract infection, site not specified Status: Acute Assessment and Plan: Patient was started on levofloxacin Await cultures (5) T2DM (type 2 diabetes mellitus): Code(s): E11.9 - Type 2 diabetes mellitus without complications Status: Acute Assessment and Plan: Holding metformin Insulin sliding scale as needed Accu-Cheks AC and HS (6) Acid reflux: Code(s): K21.9 - Gastro-esophageal reflux disease without esophagitis Status: Acute Assessment and Plan: PPI as needed (7) Hypertension: Code(s): I10 - Essential (primary) hypertension Status: Acute Assessment and Plan: Continue home meds (8) Chronic diarrhea: Code(s): K52.9 - Noninfective gastroenteritis and colitis, unspecified Status: Acute Assessment and Plan: Might need colonoscopy once patient is more hemodynamically stable Continue to monitor DS: Discharge Diagnosis Discharge Diagnosis (1) Systolic and diastolic CHF, acute on chronic: Code(s): I50.43 - Acute on chronic combined systolic (congestive) and diastolic (congestive) heart failure Status: Acute (2) Anasarca: Code(s): R60.1 - Generalized edema Status: Acute (3) Acute DVT (deep venous thrombosis): Code(s): I82.409 - Acute embolism and thrombosis of unspecified deep veins of unspecified lower extremity Status: Acute (4) Acute pulmonary embolism: Code(s): I26.99 - Other pulmonary embolism without acute cor pulmonale Status: Acute (5) Normocytic anemia: Code(s): D64.9 - Anemia, unspecified Status: Acute (6) History of ischemic bowel disease: Code(s): Z87.19 - Personal history of other diseases of the digestive system Status: Acute (7) Sepsis: Code(s): A41.9 - Sepsis, unspecified organism Status: Acute (8) Dementia: Code(s): F03.90 - Unspecified dementia without behavioral disturbance Status: Acute (9) Elevated lactic acid level: Code(s): R79.89 - Other specified abnormal findings of blood chemistry Status: Acute (10) PVCs (premature ventricular contractions): Code(s): I49.3 - Ventricular premature depolarization Status: Acute (11) Chronic diarrhea: Code(s): K52.9 - Noninfective gastroenteritis and colitis, unspecified Status: Acute (12) T2DM (type 2 diabetes mellitus): Code(s): E11.9 - Type 2 diabetes mellitus without complications Status: Acute (13) Hypertension: Code(s): I10 - Essential (primary) hypertension Status: Acute (14) Acid reflux: Code(s): K21.9 - Gastro-esophageal reflux disease without esophagitis Status: Acute DS: Summary Hospital Course Reason for hospitalization: [facility] Hospital Course: 03/31/21 Patient's labs shows iron deficiency anemia-family says no acute signs of GI bleeding, dark tarry stools bright red blood in her stools, could be chronic in nature. Will give IV Venofer 300 mg for 3 days. Need various sulfate upon discharge. patient is still tachy
--- NOTE | 2021-04-05 14:43 | PCPTNOTE ---
Per RN, did not see patient for Physical Therapy treatment this date.
--- NOTE | 2021-04-05 15:41 | PC.NURSE ---
Notified that family no longer wishes to [facility]. Lines and mckeon previously removed. EMS transport dismissed. Family wishes to pursue home hospice. notified.
[2021-04-05] MEDS: MELATONIN 5 MG TABLET PO (21:03)
--- NOTE | 2021-04-05 21:27 | PC.NURSE ---
This patient, Braynna Veras, was transferred to [facility] on 04/05/21 at 2127. Personal belongings sent with patient. Report given to Alka ROGERS. Appropriate documentation sent with patient.
[2021-04-06] VITALS: BP 125/60; PULSE 100; RESP 16; TEMP 37.1; O2SAT 95
[2021-04-06 04:00] VITALS: BP 129/67; PULSE 101; RESP 16; TEMP 36.7; O2SAT 95
[2021-04-06 08:02] VITALS: RESP 16; O2SAT 94
[2021-04-06 08:18] LABS: Glucose Point of Care 239 mg/dl (65-105)
--- NOTE | 2021-04-06 08:24 | PCOTNOTE ---
Patient's RN reports stating to hold therapy at this time d/t patient discharging with hospice care. Will continue per POC accordingly.
--- NOTE | 2021-04-06 09:26 | P.PNIM_ITS ---
Progress Note: A&P Assessment and Plan (1) Systolic and diastolic CHF, acute on chronic: Code(s): I50.43 - Acute on chronic combined systolic (congestive) and diastolic (congestive) heart failure Status: Acute (2) Anasarca: Code(s): R60.1 - Generalized edema Status: Acute (3) Acute DVT (deep venous thrombosis): Code(s): I82.409 - Acute embolism and thrombosis of unspecified deep veins of unspecified lower extremity Status: Acute Assessment and Plan: (4) Acute pulmonary embolism: Code(s): I26.99 - Other pulmonary embolism without acute cor pulmonale Status: Acute Assessment and Plan: (5) Normocytic anemia: Code(s): D64.9 - Anemia, unspecified Status: Acute Assessment and Plan: (6) History of ischemic bowel disease: Code(s): Z87.19 - Personal history of other diseases of the digestive system Status: Acute Assessment and Plan: (7) Sepsis: Code(s): A41.9 - Sepsis, unspecified organism Status: Acute Assessment and Plan: (8) Dementia: Code(s): F03.90 - Unspecified dementia without behavioral disturbance Status: Acute (9) Elevated lactic acid level: Code(s): R79.89 - Other specified abnormal findings of blood chemistry Status: Acute (10) PVCs (premature ventricular contractions): Code(s): I49.3 - Ventricular premature depolarization Status: Acute (11) Chronic diarrhea: Code(s): K52.9 - Noninfective gastroenteritis and colitis, unspecified Status: Acute Assessment and Plan: (12) T2DM (type 2 diabetes mellitus): Code(s): E11.9 - Type 2 diabetes mellitus without complications Status: Acute Assessment and Plan: (13) Hypertension: Code(s): I10 - Essential (primary) hypertension Status: Acute Assessment and Plan: (14) Acid reflux: Code(s): K21.9 - Gastro-esophageal reflux disease without esophagitis Status: Acute Additional Plan 03/31/21 Patient's labs shows iron deficiency anemia-family says no acute signs of GI bleeding, dark tarry stools bright red blood in her stools, could be chronic in nature. Will give IV Venofer 300 mg for 3 days. Need various sulfate upon discharge. patient is still tachypneic with an elevated D-dimer at 5.03-unable to get CTA of chest to rule out pulmonary embolism since we already had a CT abdomen pelvis with contrast earlier today. Completed the Wells criteria and show she is at low risk given everything else going on-pleural effusions, pulmonary edema, anasarca, large amount of ascites, as well as tachypnea being caused from sepsis with lactic acidosis in the setting of colitis versus UTI. Will be NPO after midnight for CTA of chest rule out PE and started on Lovenox 40 mg subQ daily for DVT prophylaxis until further imaging can be done. Also ordered venous Doppler ultrasounds bilaterally to rule out DVT due to pitting edema and leg swelling. Glue Sprayer also going to read echocardiogram to see if she sees any type of right heart strain which would tell us if she is at a higher risk of having a pulmonary embolism and may switch to acute treatment. will decrease diuretics from Lasix 40
[2021-04-06 12:00] VITALS: BP 127/61; PULSE 66; RESP 20; TEMP 36.3; O2SAT 94
[2021-04-06 12:06] LABS: Glucose Point of Care 278 mg/dl (65-105)
--- NOTE | 2021-04-06 12:28 | PM.DS ---
DS: Admitting Diagnosis Discharge Date 04/06/21 Admitting Diagnosis (1) CHF (congestive heart failure): Code(s): I50.9 - Heart failure, unspecified Status: Acute Assessment and Plan: Admit to telemetry unit Patient was not taking her medications Restart home medication Aggressive diuresis Daily intake and output Echocardiogram in a.m. Cardiology consult (2) Elevated troponin: Code(s): R77.8 - Other specified abnormalities of plasma proteins Status: Acute Assessment and Plan: Trend troponins EKG with no acute changes (3) Acute renal insufficiency: Code(s): N28.9 - Disorder of kidney and ureter, unspecified Status: Acute Assessment and Plan: Patient with a creatinine of 1.4 prior creatinine was below 1 BUN is relatively normal Continue to monitor BUN and creatinine (4) Acute UTI: Code(s): N39.0 - Urinary tract infection, site not specified Status: Acute Assessment and Plan: Patient was started on levofloxacin Await cultures (5) T2DM (type 2 diabetes mellitus): Code(s): E11.9 - Type 2 diabetes mellitus without complications Status: Acute Assessment and Plan: Holding metformin Insulin sliding scale as needed Accu-Cheks AC and HS (6) Acid reflux: Code(s): K21.9 - Gastro-esophageal reflux disease without esophagitis Status: Acute Assessment and Plan: PPI as needed (7) Hypertension: Code(s): I10 - Essential (primary) hypertension Status: Acute Assessment and Plan: Continue home meds (8) Chronic diarrhea: Code(s): K52.9 - Noninfective gastroenteritis and colitis, unspecified Status: Acute Assessment and Plan: Might need colonoscopy once patient is more hemodynamically stable Continue to monitor DS: Discharge Diagnosis Discharge Diagnosis (1) Systolic and diastolic CHF, acute on chronic: Code(s): I50.43 - Acute on chronic combined systolic (congestive) and diastolic (congestive) heart failure Status: Acute (2) Anasarca: Code(s): R60.1 - Generalized edema Status: Acute (3) Acute DVT (deep venous thrombosis): Code(s): I82.409 - Acute embolism and thrombosis of unspecified deep veins of unspecified lower extremity Status: Acute (4) Acute pulmonary embolism: Code(s): I26.99 - Other pulmonary embolism without acute cor pulmonale Status: Acute (5) Normocytic anemia: Code(s): D64.9 - Anemia, unspecified Status: Acute (6) History of ischemic bowel disease: Code(s): Z87.19 - Personal history of other diseases of the digestive system Status: Acute (7) Sepsis: Code(s): A41.9 - Sepsis, unspecified organism Status: Acute (8) Dementia: Code(s): F03.90 - Unspecified dementia without behavioral disturbance Status: Acute (9) Elevated lactic acid level: Code(s): R79.89 - Other specified abnormal findings of blood chemistry Status: Acute (10) PVCs (premature ventricular contractions): Code(s): I49.3 - Ventricular premature depolarization Status: Acute (11) Chronic diarrhea: Code(s): K52.9 - Noninfective gastroenteritis and colitis, unspecified Status: Acute (12) T2DM (type 2 diabetes mellitus): Code(s): E11.9 - Type 2 diabetes mellitus without complications Status: Acute (13) Hypertension: Code(s): I10 - Essential (primary) hypertension Status: Acute (14) Acid reflux: Code(s): K21.9 - Gastro-esophageal reflux disease without esophagitis Status: Acute DS: Summary Hospital Course Reason for hospitalization: SOB Hospital Course: Reason for hospitalization: SOB Hospital Course: 03/31/21 Patient's labs shows iron deficiency anemia-family says no acute signs of GI bleeding, dark tarry stools bright red blood in her stools, could be chronic in nature. Will give IV Venofer 300 mg for 3 days. Need various sul
--- NOTE | 2021-04-06 16:01 | PCPTNOTE ---
Did not see patient for Physical Therapy today due to patient potentially discharging to hospice care.
== END 2021-04-06 16:10 | disposition hospice, home (50) | DRG 177 ==
LOC: ANHED 23:20 → ANHIMU 23:54 → ANH2MED 04-06 12:28 → ANHIMU 04-07 17:51
PROVIDERS: Internal Medicine; Nurse Practitioner; Physician Assistant; Admitting Provider Internal Medicine; Emergency Provider Emergency Medicine; PCP Family Medicine; Visit Provider Hospitalist
DX: J69.0 Pneumonitis due to inhalation of food and vomit (principal); I50.43 Acute on chronic combined systolic (congestive) and diastolic (congestive) heart failure; A09 Infectious gastroenteritis and colitis, unspecified; N39.0 Urinary tract infection, site not specified; R18.8 Other ascites; N17.9 Acute kidney failure, unspecified; I82.441 Acute embolism and thrombosis of right tibial vein; I82.812 Embolism and thrombosis of superficial veins of left lower extremity; J18.9 Pneumonia, unspecified organism; I11.0 Hypertensive heart disease with heart failure; K21.9 Gastro-esophageal reflux disease without esophagitis; E78.5 Hyperlipidemia, unspecified; N28.9 Disorder of kidney and ureter, unspecified; E11.9 Type 2 diabetes mellitus without complications; I49.3 Ventricular premature depolarization; F03.90 Unspecified dementia, unspecified severity, without behavioral disturbance, psychotic disturbance, mood disturbance, and anxiety; D50.9 Iron deficiency anemia, unspecified; E83.42 Hypomagnesemia; E87.6 Hypokalemia; Z66 Do not resuscitate; Z91.14 Patient's other noncompliance with medication regimen; Z85.3 Personal history of malignant neoplasm of breast
CPT/HCPCS: 36415; 36430; 36569; 36600; 70450; 71045; 71046; 71275; 74177; 80048; 80053; 81001; 82140; 82375; 82607; 82728; 82746; 82805; 82948; 83036; 83050; 83540; 83550; 83605; 83735; 83880; 84443; 84466; 84484; 85014; 85018; 85025; 85380; 85610; 85730; 86140; 86850; 86880; 86900; 86901; 86902; 86922; 87040; 87086; 93005; 93306; 93970; 96365; 96366; 96375; 96376; 97110; 97161; 97166; 97530; 99285; A9270; C1751; C9113; G0378; J0131; J1200; J1630; J1644; J1650; J1756; J1815; J1940; J1956; J2060; J2270; J3475; P9016; Q9967